=== PATIENT | male | born 1945 | race African-American/Black ===

== ENCOUNTER 2020-06-07 09:21 | Inpatient (IN) | payer OTHER ==
--- NOTE | 2020-06-07 09:28 | PDOC ---
History of Present Illness - General Chief Complaint: Urinary Catheter Problem Stated Complaint: URINARY CATHETER PROBLEM Time Seen by Provider: 06/07/20 09:26 - History of Present Illness Initial Comments: 06/07/20 09:30 74yo M hx iron def anemia,HTN,HLD recent hip replacement presents to the ED with inability to pass urine through his root catheter for 3 days and hgb of 6.9. Pt was last seen at this ED 2 days ago for [facility] repeat Hgb at that time was 7 and pt was d/c without incident. Root was last changed yesterday, and no urine was passed. He denies any fevers, chill, abdominal pain, flank pain, nausea, vomiting, diarrhea. Lasts bowel movement was on Monday. PMHx: as noted above ROS: as noted SHx: Denies Etoh, IVDA, tobacco use Allergies: NKDA ROS: GENERAL/CONSTITUTIONAL: No fever or chills. No weakness. HEAD, EYES, EARS, NOSE AND THROAT: No change in vision. No ear pain or discharge. No sore throat. CARDIOVASCULAR: No chest pain or shortness of breath RESPIRATORY: No cough, wheezing, or hemoptysis. GASTROINTESTINAL: No nausea, vomiting, diarrhea or constipation. GENITOURINARY: No dysuria, frequency, or change in urination. MUSCULOSKELETAL: No joint or muscle swelling or pain. No neck or back pain. SKIN: No rash NEUROLOGIC: No headache, vertigo, loss of consciousness, or change in strength/sensation. ENDOCRINE: No increased thirst. No abnormal weight change HEMATOLOGIC/LYMPHATIC: No anemia, easy bleeding, or history of blood clots. ALLERGIC/IMMUNOLOGIC: No hives or skin allergy. PE: GENERAL: Awake, alert, and fully oriented, in no acute distress HEAD: No signs of trauma, normocephalic, atraumatic EYES: PERRLA, EOMI, sclera anicteric, conjunctiva clear ENT: Auricles normal inspection, hearing grossly normal, nares patent, oropharynx clear without exudates. Moist mucosa NECK: Normal ROM, supple, no lymphadenopathy, JVD, or masses LUNGS: No distress, speaks full sentences, clear to auscultation bilaterally HEART: Regular rate and rhythm, normal S1 and S2, no murmurs, rubs or gallops, peripheral pulses normal and equal bilaterally. ABDOMEN: Soft, nontender, hernia above umbilicus (non-tender). EXTREMITIES : Normal inspection, Normal range of motion, no edema. No clubbing or cyanosis NEUROLOGICAL: Cranial nerves II through XII grossly intact. Normal speech, normal gait, no focal sensorimotor deficits SKIN: Warm, Dry, normal turgor, no rashes or lesions noted MDM DDx including but not limited to: Workup: TX: Scores - HEART score - EKG: normal sinus rhythm, HR bpm, AL ms, QRS ms, QTc ms ED course attempts to irrigate root catheter already in place, unsuccessful new root placed approx 600cc of blood urine obtained. multiple large clots observed after irrigation of bladder with sterile water. -hyperkalemic on first BMP, reported hemolyzed repeat EKG, normal SR, no peaked T waves repeat BMP sent repeat BMP with potassium of 5 CXR: no acute pathology calcium gluconate given Past History - Medical History Allergies/Adverse Reactions: Allergies Allergy/AdvReac Type Severity Reaction Status Date / Time No Known Drug Allergies Allergy Verified 06/07/20 09:23 Home Medications: Ambulatory Orders Albuterol 2.5/Ipratropium 0.5 [Duoneb -] 1 amp NEB BID 06/05/20 Aspirin [ASA -] 81 mg PO BID 06/05/20 Atorvastatin Ca [Lipitor] 80 mg PO HS 06/05/20 Bacitracin - [Bacitracin Topical Ointment -] 1 applic TP DAILY 06/05/20 Diltiazem HCl [Diltiazem 24Hr ER] 120 mg PO DAILY 06/05/20 Ferrous Sulfate [Feosol] 325 mg PO BID 06/05/20 Furosemide [Lasix -] 40 mg PO DAILY 06/05/20 Lactulose [Enulose] 30 ml PO DAILY PRN 06/05/20 Oxycodone HCl/Acetaminophen [Oxycodone-Acetaminophen 10-325] 1 each PO Q4H PRN 06/05/20 Pantoprazole Sodium [Protonix -] 40 mg PO BID 06/05/20 Sennosides [Senokotxtra] 17.2 mg PO BID 06/05/20 Sulfamethoxazole/Trimethoprim [Bactrim Ds -] 1 tab PO BID 06/05/20 Tamsulosin HCl [Flomax] 0.4 mg PO DAILY 06/05/20 COPD: No HTN: Yes Hypercholesterolemia: Yes - Psycho-Social/Smoking History Smoking History: Never smoked ED Treatment Course - LABORATORY CBC & Chemistry Diagram: 06/07/20 10:26 06/07/20 11:40 Discharge - Follow up/Referral Referrals: Colby Jeronimo MD [Primary Care Provider] - - Patient Discharge Instructions - Post Discharge Activity
[2020-06-07 10:40] LABS: BASO % 0.5 % (0-2.0); HEMOGLOBIN 7.5 GM/dL (11.7-16.9); LYMPH % 12.7 % (8-40); MCH 27.2 pg (25.7-33.7); MCHC 32.7 g/dl (32.0-35.9); MEAN CELL VOLUME 83.1 fl (80-96); MEAN PLT VOLUME 7.4 fl (7.5-11.1); NEUT % 79.8 % (42.8-82.8); PLATELET COUNT 352 K/MM3 (134-434); RBC 2.76 M/mm3 (4.00-5.60); RDW 17.6 % (11.9-15.9); WHITE BLOOD COUNT 6.4 K/mm3 (4.0-10.0)
[2020-06-07 10:46] LABS: INR 1.29 (0.83-1.09); PROTHROMBIN TIME (PATIENT) 15.3 SEC (9.7-13.0)
[2020-06-07 10:57] LABS: ALBUMIN 3.4 g/dl (3.4-5.0); BILIRUBIN,TOTAL 0.6 mg/dL (0.2-1); BLOOD UREA NITROGEN 26.3 mg/dL (7-18); CALCIUM 8.5 mg/dL (8.5-10.1); CREATININE 3.1 mg/dL (0.55-1.3); TOT PROT 8.7 g/dl (6.4-8.2)
[2020-06-07 11:08] LABS: POTASSIUM 8.1 mmol/L (3.5-5.1)
[2020-06-07] MEDS ORDERED: CALCIUM GLUCONATE 10% - 1,000 MG/10 ML VIAL IVPUSH ONE (11:09)
[2020-06-07] MEDS ORDERED: SODIUM CHLORIDE 0.9% 500 ML INFUS.BAG IV ONE (11:20)
[2020-06-07] MEDS ORDERED: DEXTROSE 50%-WATER - 25 GM/50 ML VIAL IVPUSH ONE (11:23)
[2020-06-07 11:27] LABS: URINE APPEARANCE TURBID
--- NOTE | 2020-06-07 11:27 | PDOC ---
Documentation entered by Marco Antonio Rodriguez SCRIBE, acting as scribe for Keyanna Bledsoe MD. Keyanna Bledsoe MD: This documentation has been prepared by the scribe, Marco Antonio Rodriguez SCRIBE, under my direction and personally reviewed by me in its entirety. I confirm that the documentation accurately reflects all work, treatment, procedures, and medical decision making performed by me. Attending Attestation - Resident Resident Name: Nick Dykes - ED Attending Attestation I have performed the following: I have examined & evaluated the patient, The case was reviewed & discussed with the resident, I agree w/resident's findings & plan, Exceptions are as noted - HPI HPI: 06/07/20 10:38 The patient is a 74 year old male with a significant past medical history of HTN, HLD, and anemia (baseline hgb around 7) who presents to the emergency department, [facility] from [facility], for evaluation of the inability to pass urine through his root catheter that began three days ago. The patient was fou nd to have a hemoglobin of 6.9 today. The patient presented to the ED two days ago and had a recorded hemoglobin of 5.9 that elevated to 7 prior to discharge. His root was changed yesterday but no urine was passed after this. LBM: 2 days ago The patient denies chest/abdominal/back pain, cough, and shortness of breath. Denies fever, chills, nausea, vomiting, and/or any GI symptoms. Denies any other symptoms. Allergies: NKDA Past surgical history: Left Hip replacement Social history: No reported hx of tobacco use, alcohol use or illicit drug use. PCP: Bladimir Goodwin Ortho: Dr. Jarquin - Physicial Exam PE: 06/07/20 11:18 General: uncomfortable appearing Abdomen: soft, +suprapubic ttp, +palpable bladder, no rebound, no guarding - Medical Decision Making 06/07/20 11:19 74 yo M with urinary retention and report of anemia today, root changed and irrigated with return of blood and urine. Pt. with significant improvement in his discomfort s/p root. Plan: -labs -urine -root replaced and currently draining urine -reassess This clinical encounter is taking place during a federal and state health care e mergency attributable to the novel Emery Virus pandemic. The [employer] of the Department of Health and Human Services has declared, pursuant to the Public Health Service Act 319F-3 (42 U.S.C. 247d-6d), that a covered persons activities related to medical countermeasures against COVID-19 will be immune from liability under Federal and State law. Labs notable for Cr ~3 (baseline ~1.4). Suspect HENOK 2/2 obstructive uropathy. Hgb 7.5 so will hold on transfusion at present time and recheck labs. K 8.1 but slightly hemolyzed. EKG with normal intervals and no peaked t waves so will hold Ca for now. Will give insulin, d50, IVF. Will continue to monitor and recheck labs. Will admit for HENOK. Discharge - Discharge Information Problems reviewed: Yes Clinical Impression/Diagnosis: HENOK (acute kidney injury) Anemia Qualifiers: Anemia type: unspecified type Qualified Code(s): D64.9 - Anemia, unspecified - Follow up/Referral - Patient Discharge Instructions - Post Discharge Activity
[2020-06-07 11:28] LABS: EPI CELLS 1+ /uL (0-25.1); URINE BACTERIA 1+ /uL (0-1359); URINE RBC >100 /uL (0-23.9)
[2020-06-07 11:29] LABS: URINE COLOR RED
[2020-06-07 12:24] LABS: BLOOD UREA NITROGEN 25.7 mg/dL (7-18); CALCIUM 8.8 mg/dL (8.5-10.1); CREATININE 2.8 mg/dL (0.55-1.3)
[2020-06-07 14:50] LABS: BASO % 0.6 % (0-2.0); HEMATOCRIT 18.9 % (35.4-49); LYMPH % 20.2 % (8-40); MCH 27.1 pg (25.7-33.7); MCHC 32.8 g/dl (32.0-35.9); MEAN CELL VOLUME 82.6 fl (80-96); MEAN PLT VOLUME 7.1 fl (7.5-11.1); MONO % 10.9 % (3.8-10.2); NEUT % 68.3 % (42.8-82.8); PLATELET COUNT 266 K/MM3 (134-434); RBC 2.28 M/mm3 (4.00-5.60); RDW 17.3 % (11.9-15.9); WHITE BLOOD COUNT 5.3 K/mm3 (4.0-10.0)
[2020-06-07 14:56] LABS: HEMOGLOBIN 6.2 GM/dL (11.7-16.9)
[2020-06-08] MEDS ORDERED: ACETAMINOPHEN 325 MG TABLET (FP) PO ONE (04:15)
[2020-06-08] MEDS ORDERED: oxyCODONE HCL 5 MG TABLET PO ONE (04:15)
[2020-06-08 12:19] LABS: HEMATOCRIT 21.6 % (35.4-49); HEMOGLOBIN 7.3 GM/dL (11.7-16.9); MCH 28.8 pg (25.7-33.7); MCHC 33.9 g/dl (32.0-35.9); MEAN CELL VOLUME 84.9 fl (80-96); MEAN PLT VOLUME 6.9 fl (7.5-11.1); PLATELET COUNT 209 K/MM3 (134-434); RBC 2.55 M/mm3 (4.00-5.60); RDW 17.8 % (11.9-15.9); WHITE BLOOD COUNT 5.1 K/mm3 (4.0-10.0)
[2020-06-08 12:25] LABS: ALBUMIN 3.2 g/dl (3.4-5.0); BILIRUBIN,TOTAL 0.5 mg/dL (0.2-1); BLOOD UREA NITROGEN 22.7 mg/dL (7-18); CALCIUM 8.2 mg/dL (8.5-10.1); CREATININE 1.6 mg/dL (0.55-1.3); POTASSIUM 4.6 mmol/L (3.5-5.1)
[2020-06-08 12:27] LABS: TOT PROT 6.4 g/dl (6.4-8.2)
--- NOTE | 2020-06-08 13:03 | HP ---
Admitting History and Physical - Admission History of Present Illness: The patient is a 74 year old male with a significant past medical history of HTN, HLD, and anemia (baseline hgb around 7) who presents to the emergency department, [facility] from [facility], for evaluation of the inability to pass urine through his root catheter that began three days ago. The patient was found to have a hemoglobin of 6.9 today. The patient presented to the ED two days ago and had a recorded hemoglobin of 5.9 that elevated to 7 prior to discharge. His root was changed yesterday but no urine was passed after this. LBM: 2 days ago - Past Medical History Cardiovascular: Yes: HTN, Hyperlipdemia Gastrointestinal: Yes: GERD Heme/Onc: Yes: Anemia Musculoskeletal: Yes: Osteoarthritis - Past Surgical History Past Surgical History: Yes: Joint Replacement - Smoking History Smoking history: Never smoked Have you smoked in the past 12 months: No Home Medications - Allergies Allergies/Adverse Reactions: Allergies Allergy/AdvReac Type Severity Reaction Status Date / Time No Known Drug Allergies Allergy Verified 06/07/20 09:23 - Home Medications Home Medications: Ambulatory Orders Albuterol 2.5/Ipratropium 0.5 [Duoneb -] 1 amp NEB BID 06/05/20 Aspirin [ASA -] 81 mg PO BID 06/05/20 Atorvastatin Ca [Lipitor] 80 mg PO HS 06/05/20 Bacitracin - [Bacitracin Topical Ointment -] 1 applic TP DAILY 06/05/20 Diltiazem HCl [Diltiazem 24Hr ER] 120 mg PO DAILY 06/05/20 Ferrous Sulfate [Feosol] 325 mg PO BID 06/05/20 Furosemide [Lasix -] 40 mg PO DAILY 06/05/20 Lactulose [Enulose] 30 ml PO DAILY PRN 06/05/20 Oxycodone HCl/Acetaminophen [Oxycodone-Acetaminophen 10-325] 1 each PO Q4H PRN 06/05/20 Pantoprazole Sodium [Protonix -] 40 mg PO BID 06/05/20 Sennosides [Senokotxtra] 17.2 mg PO BID 06/05/20 Sulfamethoxazole/Trimethoprim [Bactrim Ds -] 1 tab PO BID 06/05/20 Tamsulosin HCl [Flomax] 0.4 mg PO DAILY 06/05/20 Physical Examination Vital Signs: Vital Signs Temperature 98.7 F 06/08/20 06:00 Pulse Rate 88 06/08/20 10:00 Respiratory Rate 18 06/08/20 10:00 Blood Pressure 111/66 06/08/20 10:00 O2 Sat by Pulse Oximetry (%) 98 06/08/20 10:00 Cardiovascular: Yes: Regular Rate and Rhythm Respiratory: Yes: Regular, CTA Bilaterally Gastrointestinal: Yes: Normal Bowel Sounds, Soft. No: Tenderness Labs: CBC, BMP 06/08/20 11:50 06/08/20 11:50 Problem List - Problems (1) Anemia Assessment/Plan: maybe due to hematuria follow trends urology and gi consults Code(s): D64.9 - ANEMIA, UNSPECIFIED Qualifiers: Anemia type: unspecified type Qualified Code(s): D64.9 - Anemia, unspecified (2) HTN (hypertension) Assessment/Plan: monitor Vital Signs Period Temp Pulse Resp BP Sys/Vo Pulse Ox Last 24 Hr 98.2 F-98.7 F 76-97 18-18 94-135/46-68 97-100 Code(s): I10 - ESSENTIAL (PRIMARY) HYPERTENSION (3) HLD (hyperlipidemia) Assessment/Plan: on statin Code(s): E78.5 - HYPERLIPIDEMIA, UNSPECIFIED (4) HENOK (acute kidney injury) Assessment/Plan: maybe obstructive monitor trends follow labs ivf renal consult Code(s): N17.9 - ACUTE KIDNEY FAILURE, UNSPECIFIED (5) Retention, urine Assessment/Plan: root flomax urology consult Code(s): R33.9 - RETENTION OF URINE, UNSPECIFIED
[2020-06-08] MEDS ORDERED: LACTULOSE 20 GM/30 ML UDC (FOR ORAL USE ONLY) PO PRN (13:06)
[2020-06-08] MEDS ORDERED: PATIENT'S OWN MEDICATION (NON-FORMULARY) (Oxycodone Hcl/Acetaminophen [Oxycodone-Acetamino PO PRN (13:06)
[2020-06-08] MEDS ORDERED: ACETAMINOPHEN 325 MG TABLET (FP) PO PRN (13:25)
[2020-06-08] MEDS: PANTOPRAZOLE 40 MG TABLET PO SCH ×2 (15:00→22:08)
[2020-06-08] MEDS: FERROUS SO4 325 MG TABLET (FP) PO SCH (16:59)
[2020-06-08] MEDS: ALBUTEROL SO4 2.5/IPRATROPIUM 0.5 INH SOL 3 ML VIAL.NEB. NEB SCH (20:07)
[2020-06-08] MEDS ORDERED: PANTOPRAZOLE 40 MG TABLET PO SCH (22:00)
[2020-06-08] MEDS: ATORVASTATIN CA 80 MG TABLET (FP) PO SCH (22:08)
[2020-06-08] MEDS: SENNOSIDES 8.6MG TABLET (FP) PO SCH (22:09)
[2020-06-09] MEDS: ALBUTEROL SO4 2.5/IPRATROPIUM 0.5 INH SOL 3 ML VIAL.NEB. NEB SCH ×2 (08:01→20:50)
--- NOTE | 2020-06-09 08:04 | CON.GU ---
Consult Consult Specialty:: urology Referred by:: Clayton - History of Present Illness Chief Complaint: gross hematuria/acute renal injury/bph managed with root History of Present Illness: The patient is a 74 year old male with a significant past medical history of HTN, HLD, and anemia (baseline hgb around 7) who presents to the emergency department from [facility] for evaluation of the inability to pass urine through his root catheter that began three days ago. The patient was found to have a hemoglobin of 6.9 today. The patient presented to the ED two days ago and had a recorded hemoglobin of 5.9 that elevated to 7 prior to discharge. His fol ey was changed yesterday but no urine was passed after this. The patient is currently comfortable with red colored urine passing by root without discomfort. The patient denies chest/abdominal/back pain, cough, and shortness of breath. Denies fever, chills, nausea, vomiting, and/or any GI symptoms. Denies any other symptoms. - Past Medical History Cardio/Vascular: Yes: HTN, Hyperlipdemia Gastrointestinal: Yes: GERD Musculoskeletal: Yes: Osteoarthritis - Past Surgical History Past Surgical History: Yes: Joint Replacement - Smoking History Smoking history: Never smoked Have you smoked in the past 12 months: No Home Medications - Allergies Allergies/Adverse Reactions: Allergies Allergy/AdvReac Type Severity Reaction Status Date / Time No Known Drug Allergies Allergy Verified 06/07/20 09:23 - Home Medications Home Medications: Ambulatory Orders Albuterol 2.5/Ipratropium 0.5 [Duoneb -] 1 amp NEB BID 06/05/20 Aspirin [ASA -] 81 mg PO BID 06/05/20 Atorvastatin Ca [Lipitor] 80 mg PO HS 06/05/20 Bacitracin - [Bacitracin Topical Ointment -] 1 applic TP DAILY 06/05/20 Diltiazem HCl [Diltiazem 24Hr ER] 120 mg PO DAILY 06/05/20 Ferrous Sulfate [Feosol] 325 mg PO BID 06/05/20 Furosemide [Lasix -] 40 mg PO DAILY 06/05/20 Lactulose [Enulose] 30 ml PO DAILY PRN 06/05/20 Oxycodone HCl/Acetaminophen [Oxycodone-Acetaminophen 10-325] 1 each PO Q4H PRN 06/05/20 Pantoprazole Sodium [Protonix -] 40 mg PO BID 06/05/20 Sennosides [Senokotxtra] 17.2 mg PO BID 06/05/20 Sulfamethoxazole/Trimethoprim [Bactrim Ds -] 1 tab PO BID 06/05/20 Tamsulosin HCl [Flomax] 0.4 mg PO DAILY 06/05/20 Physical Exam- Vital Signs: Vital Signs Temperature 98.4 F 06/09/20 06:00 Pulse Rate 74 06/09/20 06:00 Respiratory Rate 18 06/09/20 06:00 Blood Pressure 101/65 06/09/20 06:00 O2 Sat by Pulse Oximetry (%) 99 06/09/20 06:00 Constitutional: Yes: Well Nourished, No Distress, Calm Eyes: Yes: WNL, Conjunctiva Clear, EOM Intact HENT: Yes: WNL, Atraumatic, Normocephalic Neck: Yes: Supple, Trachea Midline Cardiovascular: Yes: Regular Rate and Rhythm Respiratory: Yes: WNL Gastrointestinal: Yes: WNL, Normal Bowel Sounds, Soft Renal/: Yes: WNL, Urethral Discharge Pelvis: Yes: WNL Scrotum: Yes: WNL Penis: Yes: WNL (root draining blood colored urine without clots) Prostate Exam: Yes: Asymmetrical, Swollen Integumentary: Yes: WNL Psychiatric: Yes: Alert, Oriented Labs: CBC, BMP 06/08/20 11:50 06/08/20 11:50 Assessment/Plan impression hemorrhagic cystitis uti HENOK plan follow hct continue bactrim continue root and flomax renal and bladder sono ordered urine cultures sent
[2020-06-09] MEDS: TAMSULOSIN HCL 0.4 MG CAP PO SCH (08:24)
[2020-06-09] MEDS: FERROUS SO4 325 MG TABLET (FP) PO SCH ×2 (08:24→17:11)
--- NOTE | 2020-06-09 09:06 | PN ---
Progress Note, Physician - Current Medication List Current Medications: Active Medications Acetaminophen (Tylenol -) 325 mg PO Q4H PRN PRN Reason: PAIN LEVEL 6-10 Albuterol/Ipratropium (Duoneb -) 1 amp NEB RBID [facility] Last Admin: 06/09/20 08:01 Dose: Not Given Documented by: Atorvastatin Calcium (Lipitor -) 80 mg PO HS [facility] Last Admin: 06/08/20 22:08 Dose: 80 mg Documented by: Diltiazem HCl (Cardizem Cd -) 120 mg PO DAILY [facility] Ferrous Sulfate (Feosol -) 325 mg PO BIDWM [facility] Last Admin: 06/09/20 08:24 Dose: 325 mg Documented by: Lactulose (Cephulac (Oral Use)) 20 gm PO DAILY PRN PRN Reason: CONSTIPATION Last Admin: 06/09/20 06:54 Dose: 20 gm Documented by: Oxycodone HCl (Roxicodone -) 10 mg PO Q4H PRN PRN Reason: PAIN LEVEL 6-10 Pantoprazole Sodium (Protonix -) 40 mg PO BID [facility] Last Admin: 06/08/20 22:08 Dose: 40 mg Documented by: Senna (Senna -) 2 tab PO BID [facility] Last Admin: 06/08/20 22:09 Dose: 2 tab Documented by: Tamsulosin HCl (Flomax -) 0.4 mg PO DAILY@0830 [facility] Last Admin: 06/09/20 08:24 Dose: 0.4 mg Documented by: - Objective Vital Signs: Vital Signs Temperature 98.4 F 06/09/20 06:00 Pulse Rate 74 06/09/20 06:00 Respiratory Rate 18 06/09/20 06:00 Blood Pressure 101/65 06/09/20 06:00 O2 Sat by Pulse Oximetry (%) 99 06/09/20 06:00 Cardiovascular: Yes: Regular Rate and Rhythm Respiratory: Yes: Regular, CTA Bilaterally Gastrointestinal: Yes: Normal Bowel Sounds, Soft. No: Tenderness Genitourinary: Yes: Root Present, Hematuria Labs: CBC, BMP 06/08/20 11:50 06/08/20 11:50 INR, PTT INR 1.29 (0.83-1.09) H 06/07/20 10:26 Problem List - Problems (1) Anemia Assessment/Plan: maybe due to hematuria follow trends urology and gi consults Code(s): D64.9 - ANEMIA, UNSPECIFIED Qualifiers: Anemia type: unspecified type Qualified Code(s): D64.9 - Anemia, unspecified (2) HTN (hypertension) Assessment/Plan: monitor Vital Signs Period Temp Pulse Resp BP Sys/Vo Pulse Ox Last 24 Hr 98.2 F-98.7 F 76-97 18-18 94-135/46-68 97-100 Code(s): I10 - ESSENTIAL (PRIMARY) HYPERTENSION (3) HLD (hyperlipidemia) Assessment/Plan: on statin Code(s): E78.5 - HYPERLIPIDEMIA, UNSPECIFIED (4) HENOK (acute kidney injury) Assessment/Plan: maybe obstructive monitor trends follow labs ivf renal consult Code(s): N17.9 - ACUTE KIDNEY FAILURE, UNSPECIFIED (5) Retention, urine Assessment/Plan: root flomax urology consult Code(s): R33.9 - RETENTION OF URINE, UNSPECIFIED (6) Cystitis Assessment/Plan: PER UROLOGY Code(s): N30.90 - CYSTITIS, UNSPECIFIED WITHOUT HEMATURIA
[2020-06-09] MEDS: PANTOPRAZOLE 40 MG TABLET PO SCH ×2 (09:39→21:58)
[2020-06-09] MEDS: SENNOSIDES 8.6MG TABLET (FP) PO SCH ×2 (09:39→21:57)
[2020-06-09] MEDS: oxyCODONE HCL 5 MG TABLET PO PRN ×2 (09:40→21:56)
[2020-06-09 10:55] LABS: BASO % 1.4 % (0-2.0); EOS % 2.2 % (0-4.5); HEMATOCRIT 24.8 % (35.4-49); HEMOGLOBIN 8.3 GM/dL (11.7-16.9); LYMPH % 19.3 % (8-40); MCH 28.5 pg (25.7-33.7); MCHC 33.6 g/dl (32.0-35.9); MEAN CELL VOLUME 84.6 fl (80-96); MONO % 13.7 % (3.8-10.2); NEUT % 63.4 % (42.8-82.8); PLATELET COUNT 248 K/MM3 (134-434); RBC 2.93 M/mm3 (4.00-5.60); RDW 17.5 % (11.9-15.9); WHITE BLOOD COUNT 6.3 K/mm3 (4.0-10.0)
[2020-06-09 11:16] LABS: BILIRUBIN,TOTAL 0.6 mg/dL (0.2-1); CALCIUM 8.4 mg/dL (8.5-10.1); CREATININE 1.2 mg/dL (0.55-1.3); POTASSIUM 4.2 mmol/L (3.5-5.1); TOT PROT 6.8 g/dl (6.4-8.2)
--- NOTE | 2020-06-09 18:44 | CON.NEP ---
Consult Consult Specialty:: Nephrology Referred by:: Dr. Arnold Reason for Consultation:: Acute kidney injury/urinary retention - History of Present Illness Chief Complaint: Urinary retention History of Present Illness: This is a 74 year old male with history of hypertension, hyperlipidemia, anemia, recent hip replacement, urinary retention with chronic indwelling root who presented from rehab with root obstruction and no urine output and found to have HENOK and acute on chronic anemia. Seen and examined at t he bedside. Awake and alert. Root was changed and pt is voiding but urine has stacie blood in it. Denies any flank pain or abdominal pain. No fever, chills, N/V/D. No leg swelling. No sob or abdominal pain. - History Source History Provided By: Patient Limitations to Obtaining History: No Limitations - Past Medical History Cardio/Vascular: Yes: HTN, Hyperlipdemia Gastrointestinal: Yes: GERD Musculoskeletal: Yes: Osteoarthritis - Past Surgical History Past Surgical History: Yes: Joint Replacement - Smoking History Smoking history: Never smoked Have you smoked in the past 12 months: No Home Medications - Allergies Allergies/Adverse Reactions: Allergies Allergy/AdvReac Type Severity Reaction Status Date / Time No Known Drug Allergies Allergy Verified 06/07/20 09:23 - Home Medications Home Medications: Ambulatory Orders Albuterol 2.5/Ipratropium 0.5 [Duoneb -] 1 amp NEB BID 06/05/20 Aspirin [ASA -] 81 mg PO BID 06/05/20 Atorvastatin Ca [Lipitor] 80 mg PO HS 06/05/20 Bacitracin - [Bacitracin Topical Ointment -] 1 applic TP DAILY 06/05/20 Diltiazem HCl [Diltiazem 24Hr ER] 120 mg PO DAILY 06/05/20 Ferrous Sulfate [Feosol] 325 mg PO BID 06/05/20 Furosemide [Lasix -] 40 mg PO DAILY 06/05/20 Lactulose [Enulose] 30 ml PO DAILY PRN 06/05/20 Oxycodone HCl/Acetaminophen [Oxycodone-Acetaminophen 10-325] 1 each PO Q4H PRN 06/05/20 Pantoprazole Sodium [Protonix -] 40 mg PO BID 06/05/20 Sennosides [Senokotxtra] 17.2 mg PO BID 06/05/20 Sulfamethoxazole/Trimethoprim [Bactrim Ds -] 1 tab PO BID 06/05/20 Tamsulosin HCl [Flomax] 0.4 mg PO DAILY 06/05/20 Review of Systems - Review of Systems Constitutional: reports: No Symptoms Eyes: reports: No Symptoms HENT: reports: No Symptoms Neck: reports: No Symptoms Cardiovascular: reports: No Symptoms Respiratory: reports: No Symptoms Gastrointestinal: reports: No Symptoms Genitourinary: reports: No Symptoms Musculoskeletal: reports: No Symptoms Integumentary: reports: No Symptoms Neurological: reports: No Symptoms Endocrine: reports: No Symptoms Nephrology Consult - Height Height: 5 ft 7 in - Weight Weight: 76.43 kg - BMI Body Mass Index (BMI): 26.4 - Lab Results CBC,BMP: CBC, BMP 06/09/20 10:08 06/09/20 10:08 Anion Gap: Anion Gap Anion Gap 5 MMOL/L (8-16) L 06/09/20 10:08 - Imaging Chest X-ray: Report Reviewed - Physical Examination Vital Signs: Vital Signs Temperature 98.7 F 06/09/20 14:00 Pulse Rate 81 06/09/20 14:00 Respiratory Rate 06/09/20 14:00 Blood Pressure 113/63 06/09/20 14:00 O2 Sat by Pulse Oximetry (%) 96 06/09/20 14:00 Constitutional: Yes: No Distress, Calm Eyes: Yes: Conjunctiva Clear HENT: Yes: Atraumatic Neck: Yes: Supple Cardiovascular: Yes: Regular Rate and Rhythm Respiratory: Yes: Regular, Diminished Gastrointestinal: Yes: Soft Renal/: Yes: Root Present, Hematuria. No: Bladder Distention, CVA Tenderness - Left, CVA Tenderness - Right Extremities: No: Cold, Cool, Cyanosis Edema: No Neurological: Yes: Alert, Oriented Assessment/Plan 74 year old male with history of hypertension, hyperlipidemia, anemia, recent hip replacement, urinary retention with chronic indwelling root who presented from rehab with root obstruction and no urine output and found to have HENOK and acute on chronic anemia. 1. Acute kidney injury due to bladder outlet obstruction 2. Hemorrhagic cystitis 3. Acute on chronic anemia 4. Chronic urinary retention requiring Root 5. Hypertension 6. Hyperlipidemia Renal function improved s/p catheter change. Start 1/2 NS at 84cc per hour to promote urine output Continue Root Hemorrhagic cystitis management per urology, ? need for CBI Continue empiric antibiotics Trend H/H, transfuse as needed consider Hematology evaluation if not done previously Thank you Cheng Bell DO
[2020-06-09] MEDS ORDERED: SODIUM CHLORIDE 0.45% 1,000 ML IV SCH (18:45)
[2020-06-09] MEDS: ATORVASTATIN CA 80 MG TABLET (FP) PO SCH (21:57)
[2020-06-09] MEDS: SODIUM CHLORIDE 0.45% 1,000 ML IV SCH (23:44)
[2020-06-10 02:27] LABS: BLOOD UREA NITROGEN 18.2 mg/dL (7-18); CALCIUM 8.6 mg/dL (8.5-10.1); CREATININE 1.3 mg/dL (0.55-1.3); POTASSIUM 4.3 mmol/L (3.5-5.1)
[2020-06-10] MEDS: oxyCODONE HCL 5 MG TABLET PO PRN ×2 (02:57→22:05)
--- NOTE | 2020-06-10 02:59 | PN ---
Progress Note (short form) - Note Progress Note: Noted earlier in evening to have no urine output from [facility], some blood seen in collection bag. Evaluated by [employer] Jose M, Serna changed. She attempted to consult urology, multiple calls placed wtih no response Patient now with BRB in tube Attempted to contact urology again via answering service, states Dr. Gustafson is home economist consumer service although our schedule shows Dr. Tellez. Multiple calls attempted by answering service wtih no callback. Fluids decreased to 50cc/h. Rpt labs noted, no significant change in renal function.
[2020-06-10] MEDS ORDERED: MORPHINE SULFATE 2 MG/ML VIAL IVPUSH ONE (03:50)
[2020-06-10] MEDS ORDERED: LIDOCAINE HCL 2% JELLY 10 ML CARTRIDGE UR ONE (04:00)
[2020-06-10] MEDS: ALBUTEROL SO4 2.5/IPRATROPIUM 0.5 INH SOL 3 ML VIAL.NEB. NEB SCH ×2 (07:50→20:17)
--- NOTE | 2020-06-10 08:02 | CON.GI ---
Consult Consult Specialty:: GI Referred by:: Clayton villar - History of Present Illness History of Present Illness: 74 y/o male was asked to be seen because of anemia. He was noted to have severe hematuria passing out clots. He denies abdominal pain, nausea , vomiting, rectal bleeding and melena - Past Medical History Cardio/Vascular: Yes: HTN, Hyperlipdemia Gastrointestinal: Yes: GERD Musculoskeletal: Yes: Osteoarthritis - Past Surgical History Past Surgical History: Yes: Joint Replacement - Smoking History Smoking history: Never smoked Have you smoked in the past 12 months: No Home Medications - Allergies Allergies/Adverse Reactions: Allergies Allergy/AdvReac Type Severity Reaction Status Date / Time No Known Drug Allergies Allergy Verified 06/07/20 09:23 - Home Medications Home Medications: Ambulatory Orders Albuterol 2.5/Ipratropium 0.5 [Duoneb -] 1 amp NEB BID 06/05/20 Aspirin [ASA -] 81 mg PO BID 06/05/20 Atorvastatin Ca [Lipitor] 80 mg PO HS 06/05/20 Bacitracin - [Bacitracin Topical Ointment -] 1 applic TP DAILY 06/05/20 Diltiazem HCl [Diltiazem 24Hr ER] 120 mg PO DAILY 06/05/20 Ferrous Sulfate [Feosol] 325 mg PO BID 06/05/20 Furosemide [Lasix -] 40 mg PO DAILY 06/05/20 Lactulose [Enulose] 30 ml PO DAILY PRN 06/05/20 Oxycodone HCl/Acetaminophen [Oxycodone-Acetaminophen 10-325] 1 each PO Q4H PRN 06/05/20 Pantoprazole Sodium [Protonix -] 40 mg PO BID 06/05/20 Sennosides [Senokotxtra] 17.2 mg PO BID 06/05/20 Sulfamethoxazole/Trimethoprim [Bactrim Ds -] 1 tab PO BID 06/05/20 Tamsulosin HCl [Flomax] 0.4 mg PO DAILY 06/05/20 Physical Exam-GI Vital Signs: Vital Signs Temperature 98.6 F 06/10/20 05:46 Pulse Rate 84 06/10/20 05:46 Respiratory Rate 20 06/10/20 05:46 Blood Pressure 124/67 06/10/20 05:46 O2 Sat by Pulse Oximetry (%) 98 06/10/20 05:46 Constitutional: Yes: Well Nourished Eyes: Yes: Conjunctiva Clear HENT: Yes: Atraumatic, Tonsillar Exudate Cardiovascular: Yes: Regular Rate and Rhythm Respiratory: Yes: CTA Bilaterally ...Palpate: Yes: Soft. No: Firm/Rigid, Guarding, Hepatomegaly, Mass, Pulsatile Mass, Splenomegaly, Tenderness Labs: CBC, BMP 06/09/20 10:08 06/10/20 01:52 INR, PTT INR 1.29 (0.83-1.09) H 06/07/20 10:26 CBCD WBC 6.3 K/mm3 (4.0-10.0) 06/09/20 10:08 RBC 2.93 M/mm3 (4.00-5.60) L 06/09/20 10:08 Hgb 8.3 GM/dL (11.7-16.9) L 06/09/20 10:08 Hct 24.8 % (35.4-49) L 06/09/20 10:08 MCV 84.6 fl (80-96) 06/09/20 10:08 MCHC 33.6 g/dl (32.0-35.9) 06/09/20 10:08 RDW 17.5 % (11.9-15.9) H 06/09/20 10:08 Plt Count 248 K/MM3 (134-434) 06/09/20 10:08 MPV 7.0 fl (7.5-11.1) L 06/09/20 10:08 CMP Sodium 138 mmol/L (136-145) 06/10/20 01:52 Potassium 4.3 mmol/L (3.5-5.1) 06/10/20 01:52 Chloride 106 mmol/L (98-107) 06/10/20 01:52 Carbon Dioxide 25 mmol/L (21-32) 06/10/20 01:52 Anion Gap 7 MMOL/L (8-16) L 06/10/20 01:52 BUN 18.2 mg/dL (7-18) H 06/10/20 01:52 Creatinine 1.3 mg/dL (0.55-1.3) 06/10/20 01:52 Calcium 8.6 mg/dL (8.5-10.1) 06/10/20 01:52 Total Bilirubin 0.6 mg/dL (0.2-1) 06/09/20 10:08 AST 30 U/L (15-37) 06/09/20 10:08 ALT 25 U/L (13-61) 06/09/20 10:08 Alkaline Phosphatase 46 U/L (45-117) 06/09/20 10:08 Total Protein 6.8 g/dl (6.4-8.2) 06/09/20 10:08 Albumin 3.0 g/dl (3.4-5.0) L 06/09/20 10:08 Problem List - Problems (1) Anemia Assessment/Plan: most likely secondary to hematuria R> gu w/u in progress GI w/u even as an outpatient Code(s): D64.9 - ANEMIA, UNSPECIFIED Qualifiers: Anemia type: unspecified type Qualified Code(s): D64.9 - Anemia, unspecified
[2020-06-10] MEDS: TAMSULOSIN HCL 0.4 MG CAP PO SCH (08:14)
[2020-06-10] MEDS: FERROUS SO4 325 MG TABLET (FP) PO SCH ×2 (08:14→17:16)
[2020-06-10 08:27] LABS: HEMATOCRIT 24.1 % (35.4-49); MCH 28.5 pg (25.7-33.7); MEAN CELL VOLUME 86.4 fl (80-96); MEAN PLT VOLUME 7.2 fl (7.5-11.1); PLATELET COUNT 223 K/MM3 (134-434); RBC 2.79 M/mm3 (4.00-5.60); RDW 17.3 % (11.9-15.9)
[2020-06-10 08:39] LABS: BLOOD UREA NITROGEN 19.3 mg/dL (7-18); CALCIUM 8.4 mg/dL (8.5-10.1); CREATININE 1.4 mg/dL (0.55-1.3); MAGNESIUM 2.3 mg/dL (1.8-2.4); PHOSPHOROUS 3.3 mg/dL (2.5-4.9); POTASSIUM 4.8 mmol/L (3.5-5.1)
--- NOTE | 2020-06-10 08:44 | CONSULT ---
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 The patient had a 14 fr root which was removed though the patient has been on root catheter drainage. The patient denies nausea, vomiting, fever, or chilles PE vss; afeb abd-soft, nontender/palpable bladder procedure note 20 aust[place] root placed and catheter is irrigated imp bph acute renal injury retention gross hematuria plan maintain root start cipro follow hct await renal/bladder sono follow creatinine
--- NOTE | 2020-06-10 08:48 | PN ---
Progress Note, Physician - Current Medication List Current Medications: Active Medications Acetaminophen (Tylenol -) 325 mg PO Q4H PRN PRN Reason: PAIN LEVEL 6-10 Last Admin: 06/09/20 09:41 Dose: 325 mg Documented by: Albuterol/Ipratropium (Duoneb -) 1 amp NEB RBID [facility] Last Admin: 06/10/20 07:50 Dose: Not Given Documented by: Atorvastatin Calcium (Lipitor -) 80 mg PO HS [facility] Last Admin: 06/09/20 21:57 Dose: 80 mg Documented by: Ciprofloxacin (Cipro (Restricted To Id)) 500 mg PO BID [facility] Diltiazem HCl (Cardizem Cd -) 120 mg PO DAILY [facility] Last Admin: 06/09/20 09:39 Dose: 120 mg Documented by: Ferrous Sulfate (Feosol -) 325 mg PO BIDWM [facility] Last Admin: 06/10/20 08:14 Dose: 325 mg Documented by: Sodium Chloride (1/2 Normal Saline) 1,000 mls @ 100 mls/hr IV ASDIR [facility] Last Admin: 06/09/20 23:44 Dose: 100 mls/hr Documented by: Lactulose (Cephulac (Oral Use)) 20 gm PO DAILY PRN PRN Reason: CONSTIPATION Last Admin: 06/09/20 06:54 Dose: 20 gm Documented by: Oxycodone HCl (Roxicodone -) 10 mg PO Q4H PRN PRN Reason: PAIN LEVEL 6-10 Last Admin: 06/10/20 02:57 Dose: 10 mg Documented by: Pantoprazole Sodium (Protonix -) 40 mg PO BID [facility] Last Admin: 06/09/20 21:58 Dose: 40 mg Documented by: Senna (Senna -) 2 tab PO BID [facility] Last Admin: 06/09/20 21:57 Dose: 2 tab Documented by: Tamsulosin HCl (Flomax -) 0.4 mg PO DAILY@0830 [facility] Last Admin: 06/10/20 08:14 Dose: 0.4 mg Documented by: - Objective Vital Signs: Vital Signs Temperature 98.6 F 06/10/20 05:46 Pulse Rate 84 06/10/20 05:46 Respiratory Rate 20 06/10/20 05:46 Blood Pressure 124/67 06/10/20 05:46 O2 Sat by Pulse Oximetry (%) 98 06/10/20 05:46 Labs: CBC, BMP 06/10/20 07:35 06/10/20 07:35 INR, PTT INR 1.29 (0.83-1.09) H 06/07/20 10:26 Problem List - Problems (1) Anemia Assessment/Plan: maybe due to hematuria follow trends urology and gi consults Code(s): D64.9 - ANEMIA, UNSPECIFIED Qualifiers: Anemia type: unspecified type Qualified Code(s): D64.9 - Anemia, unspecified (2) HTN (hypertension) Assessment/Plan: monitor Vital Signs Period Temp Pulse Resp BP Sys/Vo Pulse Ox Last 24 Hr 98.2 F-98.7 F 76-97 18-18 94-135/46-68 97-100 Code(s): I10 - ESSENTIAL (PRIMARY) HYPERTENSION (3) HLD (hyperlipidemia) Assessment/Plan: on statin Code(s): E78.5 - HYPERLIPIDEMIA, UNSPECIFIED (4) HENOK (acute kidney injury) Assessment/Plan: maybe obstructive monitor trends follow labs ivf renal consult Abnormal Lab Results 06/10/20 06/10/20 06/10/20 01:52 07:35 07:35 RBC 2.79 L Hgb 8.0 L Hct 24.1 L RDW 17.3 H MPV 7.2 L Anion Gap 7 L 6 L BUN 18.2 H 19.3 H Creatinine 1.4 H Random Glucose 131 H 108 H Calcium 8.4 L Code(s): N17.9 - ACUTE KIDNEY FAILURE, UNSPECIFIED (5) Retention, urine Assessment/Plan: root flomax urology consult Code(s): R33.9 - RETENTION OF URINE, UNSPECIFIED (6) Cystitis Assessment/Plan: PER UROLOGY Code(s): N30.90 - CYSTITIS, UNSPECIFIED WITHOUT HEMATURIA
[2020-06-10] MEDS ORDERED: PT OWN MED DRAWER 7, Y5N ONE (09:36)
[2020-06-10] MEDS: SENNOSIDES 8.6MG TABLET (FP) PO SCH ×2 (09:38→22:05)
[2020-06-10] MEDS: PANTOPRAZOLE 40 MG TABLET PO SCH ×2 (09:38→22:05)
--- NOTE | 2020-06-10 13:17 | PN ---
Progress Note, Physician History of Present Illness: Seen and examined at the bedside noted to have transient obstruction yesterday, root exchanged by urology he offers no acute complaints denies any pain, sob, N/V/D making bloody urine. - Current Medication List Current Medications: Active Medications Acetaminophen (Tylenol -) 325 mg PO Q4H PRN PRN Reason: PAIN LEVEL 6-10 Last Admin: 06/09/20 09:41 Dose: 325 mg Documented by: Albuterol/Ipratropium (Duoneb -) 1 amp NEB RBID [facility] Last Admin: 06/10/20 07:50 Dose: Not Given Documented by: Atorvastatin Calcium (Lipitor -) 80 mg PO HS [facility] Last Admin: 06/09/20 21:57 Dose: 80 mg Documented by: Diltiazem HCl (Cardizem Cd -) 120 mg PO DAILY [facility] Last Admin: 06/10/20 09:38 Dose: 120 mg Documented by: Ferrous Sulfate (Feosol -) 325 mg PO BIDWM [facility] Last Admin: 06/10/20 08:14 Dose: 325 mg Documented by: Sodium Chloride (1/2 Normal Saline) 1,000 mls @ 100 mls/hr IV ASDIR [facility] Last Admin: 06/09/20 23:44 Dose: 100 mls/hr Documented by: Lactulose (Cephulac (Oral Use)) 20 gm PO DAILY PRN PRN Reason: CONSTIPATION Last Admin: 06/09/20 06:54 Dose: 20 gm Documented by: Levofloxacin (Levaquin -) 500 mg PO DAILY@0600 [facility] Last Admin: 06/10/20 09:38 Dose: 500 mg Documented by: Oxycodone HCl (Roxicodone -) 10 mg PO Q4H PRN PRN Reason: PAIN LEVEL 6-10 Last Admin: 06/10/20 02:57 Dose: 10 mg Documented by: Pantoprazole Sodium (Protonix -) 40 mg PO BID [facility] Last Admin: 06/10/20 09:38 Dose: 40 mg Documented by: Senna (Senna -) 2 tab PO BID [facility] Last Admin: 06/10/20 09:38 Dose: 2 tab Documented by: Tamsulosin HCl (Flomax -) 0.4 mg PO DAILY@0830 [facility] Last Admin: 06/10/20 08:14 Dose: 0.4 mg Documented by: - Objective Vital Signs: Vital Signs Temperature 98.0 F 06/10/20 09:46 Pulse Rate 97 H 06/10/20 09:46 Respiratory Rate 18 06/10/20 09:46 Blood Pressure 134/75 06/10/20 09:46 O2 Sat by Pulse Oximetry (%) 96 06/10/20 09:46 Constitutional: Yes: No Distress, Calm HENT: Yes: Atraumatic Neck: Yes: Supple Cardiovascular: Yes: Regular Rate and Rhythm Respiratory: Yes: Regular, CTA Bilaterally Gastrointestinal: Yes: Soft. No: Tenderness Genitourinary: Yes: Root Present (with dark bloody urine) Extremities: No: Cold, Cool, Cyanosis Edema: No Neurological: Yes: Alert Labs: CBC, BMP 06/10/20 07:35 06/10/20 07:35 INR, PTT INR 1.29 (0.83-1.09) H 06/07/20 10:26 Assessment/Plan 74 year old male with history of hypertension, hyperlipidemia, anemia, recent hip replacement, urinary retention with chronic indwelling root who presented from rehab with root obstruction and no urine output and found to have HENOK and acute on chronic anemia. 1. Acute kidney injury due to bladder outlet obstruction 2. Hemorrhagic cystitis 3. Acute on chronic anemia 4. Chronic urinary retention requiring Root 5. Hypertension 6. Hyperlipidemia Renal function overall improved, slight rise of Cr to 1.4 may be due to transient obstruction Continue 1/2 NS at 84cc per hour to promote urine output Continue Root as per urology Hemorrhagic cystitis management per urology Continue empiric antibiotics Trend H/H, transfuse as needed Trend renal function and electrolytes daily Thank you Cheng Bell DO
--- NOTE | 2020-06-10 14:56 | CONSULT ---
Consultation: REQUESTING PROVIDER: Dr. Arnold CONSULT REQUEST: We have been asked to medically evaluate this patient for anemia. HISTORY OF PRESENT ILLNESS: Patient is a 74 year old male with past medical history of HTN, HLD, BPH, anemia, presented to the ED from [facility] for urinary retention. Five days ago, patient was brought to the ED after he was found to have hgb of 5.8 at the [facility]. At that time, repeat cbc revealed hgb of 7.1, then 7.0, and he was discharged back to the [facility], on iron supplements. Two days prior, patient was brought back to the hospital as he was noted to be retaining urine. Patient reported he had difficulty passing urine that started 3 days ago. At the ED, root was inserted, and minimal blood was noted. Yesterday, patient was noted to be draining gross blood in the urine, and had significant suprapubic pain. Urology was consulted and root was flushed, noted to have blood clots that clogged the root. Root changed to bigger size, and patient now draining dark blood in the urine. Patient has had no colonoscopy in the past. Has family history of cancer with his younger brother and sister. The patient denies chest/abdominal/back pain, cough, and shortness of breath. Denies fever, chills, nausea, vomiting, and/or any GI symptoms. Denies any other symptoms. Allergies: NKDA Past surgical history: b/l Hip replacements , b/l knee replacements Social history: No reported hx of tobacco use, alcohol use or illicit drug use. PCP: Bladimir Goodwin Ortho: Dr. Jarquin REVIEW OF SYSTEMS: CONSTITUTIONAL: Absent: fever, chills, diaphoresis, generalized weakness, malaise, loss of appetite, weight change HEENT: Absent: rhinorrhea, nasal congestion, throat pain, throat swelling, difficulty swallowing, mouth swelling, ear pain, eye pain, visual changes CARDIOVASCULAR: Absent: chest pain, syncope, palpitations, irregular heart rate, light headedness, peripheral edema RESPIRATORY: Absent: cough, shortness of breath, dyspnea with exertion, orthopnea, wheezing, stridor, hemoptysis GASTROINTESTINAL: Absent: abdominal pain, abdominal distension, nausea, vomiting, diarrhea, constipation, melena, hematochezia GENITOURINARY: hematuria Absent: dysuria, frequency, urgency, hesitancy, flank pain, genital pain MUSCULOSKELETAL: Absent: myalgia, arthralgia, joint swelling, back pain, neck pain SKIN: Absent: rash, itching, pallor HEMATOLOGIC/IMMUNOLOGIC: Absent: easy bleeding, easy bruising, lymphadenopathy, frequent infections ENDOCRINE: Absent: unexplained weight gain, unexplained weight loss, heat intolerance, cold intolerance NEUROLOGIC: Absent: headache, focal weakness or paresthesias, dizziness, unsteady gait, seizure, mental status changes, bladder or bowel incontinence PSYCHIATRIC: Absent: anxiety, depression, suicidal or homicidal ideation, hallucinations. PHYSICAL EXAMINATION Vital Signs - 24 hr 06/09/20 06/09/20 06/09/20 18:55 21:00 22:00 Temperature 98.9 F 98.2 F Pulse Rate 90 86 Respiratory 20 Rate Blood Pressure 128/59 L 120/68 O2 Sat by Pulse 97 97 98 Oximetry (%) 06/10/20 06/10/20 06/10/20 05:46 09:00 09:46 Temperature 98.6 F 98.0 F Pulse Rate 84 97 H Respiratory 20 18 Rate Blood Pressure 124/67 134/75 O2 Sat by Pulse 98 96 96 Oximetry (%) 06/10/20 14:00 Temperature 98.2 F Pulse Rate 88 Respiratory 18 Rate Blood Pressure 104/58 L O2 Sat by Pulse 100 Oximetry (%) GENERAL: Awake, alert, and fully oriented, in no acute distress. HEAD: Normal with no signs of trauma. EYES:PERRLA, EOMI, sclera anicteric, conjunctiva clear. EARS, NOSE, THROAT: Moist mucous membranes. NECK: Normal range of motion, supple LUNGS: Breath sounds equal, clear to auscultation bilaterally. HEART: Regular rate and rhythm, normal S1 and S2 ABDOMEN: Soft, nontender, not distended, normoactive bowel sounds, +periumbilical hernia MUSCULOSKELETAL: Normal range of motion at all joints. LOWER EXTREMITIES: 2+ pulses, warm, well-perfused. No peripheral edema. NEUROLOGICAL: Cranial nerves II-XII grossly intact. Normal speech. PSYCHIATRIC: Cooperative. Good eye contact. Appropriate mood and affect. SKIN: Warm, dry, normal turgor Laboratory Results - last 24 hr 06/10/20 06/10/20 06/10/20 01:52 07:35 07:35 WBC 8.0 RBC 2.79 L Hgb 8.0 L Hct 24.1 L MCV 86.4 MCH 28.5 MCHC 33.0 RDW 17.3 H Plt Count 223 MPV 7.2 L Sodium 138 137 Potassium 4.3 4.8 Chloride 106 107 Carbon Dioxide 25 25 Anion Gap 7 L 6 L BUN 18.2 H 19.3 H Creatinine 1.3 1.4 H Est GFR (CKD-EPI)AfAm 61.43 56.16 Est GFR (CKD-EPI)NonAf 53.00 48.46 Random Glucose 131 H 108 H Calcium 8.6 8.4 L Phosphorus 3.3 Magnesium 2.3 Active Medications Generic Name Dose Route Start Last Admin Trade Name Freq PRN Reason Stop Dose Admin Acetaminophen 325 mg 06/08/20 13:25 06/09/20 09:41 Tylenol - PO 325 mg Q4H PRN Administration PAIN LEVEL 6-10 Albuterol/Ipratropium 1 amp 06/08/20 20:00 06/10/20 07:50 Duoneb - NEB Not Given RBID IZZY Atorvastatin Calcium 80 mg 06/08/20 22:00 06/09/20 21:57 Lipitor - PO 80 mg HS [facility] Administration Diltiazem HCl 120 mg 06/09/20 10:00 06/10/20 09:38 Cardizem Cd - PO 120 mg DAILY [facility] Administration Ferrous Sulfate 325 mg 06/08/20 17:30 06/10/20 08:14 Feosol - PO 325 mg BIDWM [facility] Administration Sodium Chloride 1,000 mls @ 100 mls/hr 06/09/20 23:13 06/09/20 23:44 1/2 Normal Saline IV 100 mls/hr ASDIR [facility] Administration Lactulose 20 gm 06/08/20 13:06 06/09/20 06:54 Cephulac (Oral Use) PO 20 gm DAILY PRN Administration CONSTIPATION Levofloxacin 500 mg 06/10/20 10:00 06/10/20 09:38 Levaquin - PO 500 mg DAILY@0600 [facility] Administration Oxycodone HCl 10 mg 06/08/20 13:25 06/10/20 02:57 Roxicodone - PO 10 mg Q4H PRN Administration PAIN LEVEL 6-10 Pantoprazole Sodium 40 mg 06/08/20 15:00 06/10/20 09:38 Protonix - PO 40 mg BID [facility] Administration Senna 2 tab 06/08/20 22:00 06/10/20 09:38 Senna - PO 2 tab BID [facility] Administration Tamsulosin HCl 0.4 mg 06/09/20 08:30 06/10/20 08:14 Flomax - PO 0.4 mg DAILY@0830 [facility] Administration ASSESSMENT/PLAN: Patient is a 74 year old male with past medical history of HTN, HLD, BPH, RA (s/p hip replacements), anemia, presented to the ED from [facility] for urinary retention. We have been asked to medically evaluate this patient for anemia. #Anemia -likely anemia of chronic disease with hx of CKD and arthritis, hematuria, r/o gi bleed -received 3u prbc -urology and GI on board -iron studies noted, although done after transfusion -will add b12, folate, ldh, retic count -stool occult negative on 06/05 Dispo: We will continue to follow the patient. Thank you for this consultative opportunity. Visit type - Medication Review Med list reviewed for High Risk Meds patients 65 and older: Yes - Emergency Visit Emergency Visit: Yes ED Registration Date: 06/07/20 Care time: The patient presented to the Emergency Department on the above date and was hospitalized for further evaluation of their emergent condition. - New Patient This patient is new to me today: Yes Date on this admission: 06/10/20 - Critical Care Critical Care patient: No ATTENDING PHYSICIAN STATEMENT I saw and evaluated the patient. I reviewed the resident's note and discussed the case with the resident. I agree with the resident's findings and plan as documented. SUBJECTIVE: OBJECTIVE: ASSESSMENT AND PLAN:
[2020-06-10] MEDS: ATORVASTATIN CA 80 MG TABLET (FP) PO SCH (22:05)
[2020-06-11] MEDS: SODIUM CHLORIDE 0.45% 1,000 ML IV SCH (01:32)
[2020-06-11] MEDS ORDERED: SODIUM CHLORIDE 500 ML IV STA (06:42)
--- NOTE | 2020-06-11 07:43 | CONSULT ---
Consult - text type - Consultation Consultation Note: CC: gross hematuria hpi: patient with continued gross hematuria. U/S reviewed and large prostate is noted. Serna is draining well though the urine is blood colored without clots PE VSS:afeb abd-bladder not palpable imp gross hematuria bph cystitis plan will schedule cystoscopy and bilateral retrograde pyelogram
[2020-06-11] MEDS ORDERED: FUROSEMIDE 40 MG/4 ML INJECTABLE VIAL IVPUSH ONE ×2 (08:15→14:00)
[2020-06-11 08:16] LABS: BASO % 1.1 % (0-2.0); EOS % 5.6 % (0-4.5); HEMATOCRIT 18.3 % (35.4-49); LYMPH % 23.1 % (8-40); MCH 28.4 pg (25.7-33.7); MCHC 32.9 g/dl (32.0-35.9); MEAN CELL VOLUME 86.3 fl (80-96); MONO % 10.9 % (3.8-10.2); NEUT % 59.3 % (42.8-82.8); PLATELET COUNT 173 K/MM3 (134-434); RBC 2.12 M/mm3 (4.00-5.60); RDW 17.9 % (11.9-15.9); WHITE BLOOD COUNT 5.6 K/mm3 (4.0-10.0)
[2020-06-11 08:20] LABS: BLOOD UREA NITROGEN 15.2 mg/dL (7-18); CALCIUM 7.5 mg/dL (8.5-10.1); PHOSPHOROUS 2.5 mg/dL (2.5-4.9)
[2020-06-11] MEDS: PANTOPRAZOLE 40 MG TABLET PO SCH ×3 (08:21→21:47)
[2020-06-11] MEDS: FERROUS SO4 325 MG TABLET (FP) PO SCH ×2 (08:21→16:54)
[2020-06-11] MEDS: TAMSULOSIN HCL 0.4 MG CAP PO SCH (08:21)
[2020-06-11] MEDS: ALBUTEROL SO4 2.5/IPRATROPIUM 0.5 INH SOL 3 ML VIAL.NEB. NEB SCH ×2 (08:29→20:56)
--- NOTE | 2020-06-11 08:34 | PN ---
Progress Note, Physician - Current Medication List Current Medications: Active Medications Acetaminophen (Tylenol -) 325 mg PO Q4H PRN PRN Reason: PAIN LEVEL 6-10 Last Admin: 06/09/20 09:41 Dose: 325 mg Documented by: Albuterol/Ipratropium (Duoneb -) 1 amp NEB RBID [facility] Last Admin: 06/11/20 08:29 Dose: Not Given Documented by: Atorvastatin Calcium (Lipitor -) 80 mg PO HS [facility] Last Admin: 06/10/20 22:05 Dose: 80 mg Documented by: Diltiazem HCl (Cardizem Cd -) 120 mg PO DAILY [facility] Last Admin: 06/11/20 08:21 Dose: 120 mg Documented by: Ferrous Sulfate (Feosol -) 325 mg PO BIDWM [facility] Last Admin: 06/11/20 08:21 Dose: 325 mg Documented by: Sodium Chloride (1/2 Normal Saline) 1,000 mls @ 100 mls/hr IV ASDIR [facility] Last Admin: 06/11/20 01:32 Dose: 100 mls/hr Documented by: Lactulose (Cephulac (Oral Use)) 20 gm PO DAILY PRN PRN Reason: CONSTIPATION Last Admin: 06/09/20 06:54 Dose: 20 gm Documented by: Levofloxacin (Levaquin -) 500 mg PO DAILY@0600 [facility] Last Admin: 06/11/20 05:26 Dose: 500 mg Documented by: Oxycodone HCl (Roxicodone -) 10 mg PO Q4H PRN PRN Reason: PAIN LEVEL 6-10 Last Admin: 06/10/20 22:05 Dose: 10 mg Documented by: Pantoprazole Sodium (Protonix -) 40 mg PO BID [facility] Last Admin: 06/11/20 08:21 Dose: 40 mg Documented by: Senna (Senna -) 2 tab PO BID [facility] Last Admin: 06/10/20 22:05 Dose: 2 tab Documented by: Tamsulosin HCl (Flomax -) 0.4 mg PO DAILY@0830 [facility] Last Admin: 06/11/20 08:21 Dose: 0.4 mg Documented by: - Objective Vital Signs: Vital Signs Temperature 98.5 F 06/11/20 06:42 Pulse Rate 86 06/11/20 06:42 Respiratory Rate 18 06/11/20 06:42 Blood Pressure 92/56 L 06/11/20 06:42 O2 Sat by Pulse Oximetry (%) 98 06/11/20 06:42 Cardiovascular: Yes: S1, S2 Respiratory: Yes: Regular, CTA Bilaterally Gastrointestinal: Yes: Normal Bowel Sounds, Soft Labs: CBC, BMP 06/11/20 07:20 06/11/20 07:20 INR, PTT INR 1.29 (0.83-1.09) H 06/07/20 10:26 Problem List - Problems (1) Anemia Assessment/Plan: maybe due to hematuria follow trends urology and gi consults Transfuse PRBC Code(s): D64.9 - ANEMIA, UNSPECIFIED Qualifiers: Anemia type: unspecified type Qualified Code(s): D64.9 - Anemia, unspecified (2) HTN (hypertension) Assessment/Plan: monitor Period Temp Pulse Resp BP Sys/Vo Pulse Ox Last 24 Hr 98.0 F-98.7 F 86-97 18-18 87-134/50-75 96-100 Code(s): I10 - ESSENTIAL (PRIMARY) HYPERTENSION (3) HLD (hyperlipidemia) Assessment/Plan: on statin Code(s): E78.5 - HYPERLIPIDEMIA, UNSPECIFIED (4) HENOK (acute kidney injury) Assessment/Plan: maybe obstructive monitor trends follow labs ivf renal consult Abnormal Lab Results 06/07/20 06/10/20 06/11/20 14:00 07:35 07:20 RBC 2.12 L Hgb 6.0 L* Hct 18.3 L D RDW 17.9 H MPV 7.0 L Monocytes % 10.9 H Eosinophils % 5.6 H D Retic Count Chloride Anion Gap 6 L BUN 19.3 H Creatinine 1.4 H Random Glucose 108 H Calcium 8.4 L Crossmatch See Detail 06/11/20 06/11/20 07:20 07:20 RBC Hgb Hct RDW MPV Monocytes % Eosinophils % Retic Count 3.15 H Chloride 108 H Anion Gap 6 L BUN Creatinine Random Glucose Calcium 7.5 L Crossmatch Code(s): N17.9 - ACUTE KIDNEY FAILURE, UNSPECIFIED (5) Retention, urine Assessment/Plan: root flomax urology consult Code(s): R33.9 - RETENTION OF URINE, UNSPECIFIED (6) Cystitis Assessment/Plan: PER UROLOGY--Cysto today Code(s): N30.90 - CYSTITIS, UNSPECIFIED WITHOUT HEMATURIA
--- NOTE | 2020-06-11 09:20 | PN ---
Teaching Attending Note Name of Resident: Merissa Ragland ATTENDING PHYSICIAN STATEMENT I saw and evaluated the patient. I reviewed the resident's note and discussed the case with the resident. I agree with the resident's findings and plan as documented. ASSESSMENT AND PLAN: Patient is a 74 year old male with past medical history of HTN, HLD, BPH, RA (s/p hip replacements), anemia, presented to the ED from [facility] for urinary retention. #Anemia -likely anemia of blood loss + chronic disease with hx of CKD and arthritis, Gross hematuria Cystitis urology w/u in progress will follow
[2020-06-11] MEDS: SENNOSIDES 8.6MG TABLET (FP) PO SCH ×2 (10:53→21:47)
--- NOTE | 2020-06-11 12:51 | PN ---
Progress Note, Physician History of Present Illness: Seen and examined at the bedside continues to have gorss hematuria he offers no acute complaints denies any pain, sob, N/V/D getting blood transfusion - Current Medication List Current Medications: Active Medications Acetaminophen (Tylenol -) 325 mg PO Q4H PRN PRN Reason: PAIN LEVEL 6-10 Last Admin: 06/09/20 09:41 Dose: 325 mg Documented by: Albuterol/Ipratropium (Duoneb -) 1 amp NEB RBID [facility] Last Admin: 06/11/20 08:29 Dose: Not Given Documented by: Atorvastatin Calcium (Lipitor -) 80 mg PO HS [facility] Last Admin: 06/10/20 22:05 Dose: 80 mg Documented by: Diltiazem HCl (Cardizem Cd -) 120 mg PO DAILY [facility] Last Admin: 06/11/20 10:53 Dose: Not Given Documented by: Ferrous Sulfate (Feosol -) 325 mg PO BIDWM [facility] Last Admin: 06/11/20 08:21 Dose: 325 mg Documented by: Furosemide (Lasix Injection -) 40 mg IVPUSH ONCE ONE Stop: 06/11/20 14:01 Sodium Chloride (1/2 Normal Saline) 1,000 mls @ 100 mls/hr IV ASDIR [facility] Last Admin: 06/11/20 01:32 Dose: 100 mls/hr Documented by: Lactulose (Cephulac (Oral Use)) 20 gm PO DAILY PRN PRN Reason: CONSTIPATION Last Admin: 06/09/20 06:54 Dose: 20 gm Documented by: Levofloxacin (Levaquin -) 500 mg PO DAILY@0600 [facility] Last Admin: 06/11/20 05:26 Dose: 500 mg Documented by: Oxycodone HCl (Roxicodone -) 10 mg PO Q4H PRN PRN Reason: PAIN LEVEL 6-10 Last Admin: 06/10/20 22:05 Dose: 10 mg Documented by: Pantoprazole Sodium (Protonix -) 40 mg PO BID [facility] Last Admin: 06/11/20 10:53 Dose: Not Given Documented by: Senna (Senna -) 2 tab PO BID [facility] Last Admin: 06/11/20 10:53 Dose: Not Given Documented by: Tamsulosin HCl (Flomax -) 0.4 mg PO DAILY@0830 [facility] Last Admin: 06/11/20 08:21 Dose: 0.4 mg Documented by: - Objective Vital Signs: Vital Signs Temperature 98.2 F 06/11/20 10:00 Pulse Rate 90 06/11/20 10:00 Respiratory Rate 20 06/11/20 10:00 Blood Pressure 100/46 L 06/11/20 10:00 O2 Sat by Pulse Oximetry (%) 98 06/11/20 10:00 Constitutional: Yes: No Distress, Calm HENT: Yes: Atraumatic Neck: Yes: Supple Cardiovascular: Yes: Regular Rate and Rhythm Respiratory: Yes: Regular Gastrointestinal: Yes: Soft. No: Tenderness Genitourinary: Yes: Root Present (bloody urine) Extremities: No: Cyanosis Edema: No Neurological: Yes: Alert, Oriented Labs: CBC, BMP 06/11/20 07:20 06/11/20 07:20 INR, PTT INR 1.29 (0.83-1.09) H 06/07/20 10:26 Assessment/Plan 74 year old male with history of hypertension, hyperlipidemia, anemia, recent hip replacement, urinary retention with chronic indwelling root who presented from rehab with root obstruction and no urine output and found to have HENOK and acute on chronic anemia. 1. Acute kidney injury due to bladder outlet obstruction 2. Hemorrhagic cystitis 3. Acute on chronic anemia 4. Chronic urinary retention requiring Root 5. Hypertension 6. Hyperlipidemia Renal function now improved, Cr 1 Continue 1/2 NS at 84cc per hour to promote urine output Continue Root as per urology Hemorrhagic cystitis management per urology planned for cystoscpy today Continue empiric antibiotics transfuse 2 PRBC today Trend renal function and electrolytes daily Thank you Cheng Bell DO
[2020-06-11] MEDS ORDERED: ONDANSETRON 4 MG/2 ML VIAL IVPUSH PRN ×2 (17:52→20:14)
[2020-06-11] MEDS ORDERED: PROPOFOL 20 ML ONE ×2 (17:56)
[2020-06-11] MEDS ORDERED: SUCCINYLCHOLINE CHLORIDE 200 MG/10 ML SYRINGE ONE (17:56)
[2020-06-11] MEDS ORDERED: MIDAZOLAM HCL 2 MG/2 ML SINGLE DOSE VIAL ONE (17:57)
[2020-06-11] MEDS ORDERED: LACTATED RINGERS SOLUTION 1,000 ML IV SCH ×2 (18:00→20:14)
[2020-06-11] MEDS ORDERED: GENTAMICIN SO4 80 MG/2 ML VIAL ONE (18:43)
[2020-06-11] MEDS ORDERED: GENTAMICIN SO4 80 MG/2 ML VIAL IVPB ONE (18:45)
[2020-06-11] MEDS ORDERED: ceFAZolin SODIUM 1 GM VIAL IVPB ONE (18:45)
--- NOTE | 2020-06-11 19:35 | OP ---
Operative Note - Note: Operative Date: 06/11/20 Pre-Operative Diagnosis: gross hematuria with clot retention Operation: cystoscopy/right retrograde pyelogram/left ureteroscopy/evacuation of clots Findings: patient with significant bph with large median lobe. Bleeding appears to be coming from the prostate and is not active. Clots irrigated. Right retrograde pyelogram showed a mild hydronephrosis with adequate drainage due to J hooking of ureter due to BPH. Left ureter had more severe J hooking of ureter which did not allow for passage of a wire with ureteroscopy or the passage of an open ended catheter. No evidence of bladder tumor noted. Post-Operative Diagnosis: Same as Pre-op Surgeon: Deep Liriano Anesthesia: General
[2020-06-11] MEDS ORDERED: LACTULOSE 20 GM/30 ML UDC (FOR ORAL USE ONLY) PO PRN (20:14)
[2020-06-11] MEDS ORDERED: LIDOCAINE HCL 2% JELLY 10 ML CARTRIDGE UR ONE (20:14)
[2020-06-11] MEDS: ATORVASTATIN CA 80 MG TABLET (FP) PO SCH (21:47)
[2020-06-12] MEDS: ACETAMINOPHEN 325 MG TABLET (FP) PO PRN ×3 (00:31→10:08)
[2020-06-12] MEDS ORDERED: SIMETHICONE 80 MG TAB.CHEW (FP) PO ONE (05:35)
[2020-06-12] MEDS: SODIUM CHLORIDE 0.45% 1,000 ML IV SCH ×3 (06:39→18:57)
[2020-06-12 07:55] LABS: BLOOD UREA NITROGEN 12.3 mg/dL (7-18); CREATININE 1.2 mg/dL (0.55-1.3); POTASSIUM 3.8 mmol/L (3.5-5.1)
[2020-06-12 08:01] LABS: HEMATOCRIT 24.9 % (35.4-49); HEMOGLOBIN 8.4 GM/dL (11.7-16.9); MCHC 33.8 g/dl (32.0-35.9); MEAN CELL VOLUME 85.9 fl (80-96); MEAN PLT VOLUME 7.3 fl (7.5-11.1); PLATELET COUNT 183 K/MM3 (134-434); RDW 17.6 % (11.9-15.9)
--- NOTE | 2020-06-12 08:38 | PN ---
Progress Note, Physician - Current Medication List Current Medications: Active Medications Acetaminophen (Tylenol -) 325 mg PO Q4H PRN PRN Reason: PAIN LEVEL 6-10 Last Admin: 06/12/20 05:51 Dose: 325 mg Documented by: Albuterol/Ipratropium (Duoneb -) 1 amp NEB RBID [facility] Atorvastatin Calcium (Lipitor -) 80 mg PO HS [facility] Last Admin: 06/11/20 21:47 Dose: 80 mg Documented by: Diltiazem HCl (Cardizem Cd -) 120 mg PO DAILY [facility] Fentanyl (Sublimaze Injection -) 50 mcg IVPUSH [id number] PRN PRN Reason: PAIN-PACU ORDER X 4 DOSES ONLY Last Admin: 06/11/20 20:50 Dose: 50 mcg Documented by: Ferrous Sulfate (Feosol -) 325 mg PO BIDWM [facility] Sodium Chloride (1/2 Normal Saline) 1,000 mls @ 100 mls/hr IV ASDIR [facility] Last Admin: 06/12/20 06:39 Dose: 100 mls/hr Documented by: Lactulose (Cephulac (Oral Use)) 20 gm PO DAILY PRN PRN Reason: CONSTIPATION Levofloxacin (Levaquin -) 500 mg PO DAILY@0600 [facility] Last Admin: 06/12/20 05:49 Dose: 500 mg Documented by: Ondansetron HCl (Zofran Injection) 4 mg IVPUSH Q6H PRN PRN Reason: NAUSEA AND/OR VOMITING Pantoprazole Sodium (Protonix -) 40 mg PO BID [facility] Last Admin: 06/11/20 21:47 Dose: 40 mg Documented by: Senna (Senna -) 2 tab PO BID [facility] Last Admin: 06/11/20 21:47 Dose: 2 tab Documented by: Tamsulosin HCl (Flomax -) 0.4 mg PO DAILY@0830 [facility] - Objective Vital Signs: Vital Signs Temperature 97.9 F 06/12/20 05:09 Pulse Rate 78 06/12/20 05:09 Respiratory Rate 18 06/12/20 05:09 Blood Pressure 121/63 06/12/20 05:09 O2 Sat by Pulse Oximetry (%) 100 06/12/20 05:09 Cardiovascular: Yes: S1, S2 Respiratory: Yes: Regular, CTA Bilaterally Gastrointestinal: Yes: Normal Bowel Sounds, Soft Genitourinary: Yes: Serna Present, Hematuria Labs: CBC, BMP 06/12/20 07:10 06/12/20 07:10 INR, PTT INR 1.29 (0.83-1.09) H 06/07/20 10:26 Problem List - Problems (1) Anemia Code(s): D64.9 - ANEMIA, UNSPECIFIED Qualifiers: Anemia type: unspecified type Qualified Code(s): D64.9 - Anemia, unspecified (2) HTN (hypertension) Code(s): I10 - ESSENTIAL (PRIMARY) HYPERTENSION (3) HLD (hyperlipidemia) Code(s): E78.5 - HYPERLIPIDEMIA, UNSPECIFIED (4) HENOK (acute kidney injury) Code(s): N17.9 - ACUTE KIDNEY FAILURE, UNSPECIFIED (5) Retention, urine Code(s): R33.9 - RETENTION OF URINE, UNSPECIFIED (6) Cystitis Code(s): N30.90 - CYSTITIS, UNSPECIFIED WITHOUT HEMATURIA
[2020-06-12] MEDS ORDERED: DEXTROSE 5%-WATER - 50 ML IVPB ONE ×2 (09:42→09:49)
[2020-06-12] MEDS ORDERED: cefTRIAXone SODIUM 1 GM VIAL ONE ×2 (09:42→09:49)
[2020-06-12] MEDS: CEFTRIAXONE 1 GM in DEXTROSE 5%-WATER - 50 ML IVPB SCH (09:57)
[2020-06-12] MEDS: FERROUS SO4 325 MG TABLET (FP) PO SCH ×2 (09:58→18:59)
[2020-06-12] MEDS: PANTOPRAZOLE 40 MG TABLET PO SCH ×2 (10:08→21:12)
[2020-06-12] MEDS: TAMSULOSIN HCL 0.4 MG CAP PO SCH (10:08)
[2020-06-12] MEDS: SENNOSIDES 8.6MG TABLET (FP) PO SCH ×2 (10:08→21:12)
[2020-06-12] MEDS: ALBUTEROL SO4 2.5/IPRATROPIUM 0.5 INH SOL 3 ML VIAL.NEB. NEB SCH ×2 (10:58→20:26)
--- NOTE | 2020-06-12 13:47 | PN ---
Progress Note, Physician History of Present Illness: Seen and examined at the bedside s/p cystoscopy yesteday continues to have gorss hematuria he offers no acute complaints denies any pain, sob, N/V/D s/p blood transfusion - Current Medication List Current Medications: Active Medications Acetaminophen (Tylenol -) 325 mg PO Q4H PRN PRN Reason: PAIN LEVEL 6-10 Last Admin: 06/12/20 10:08 Dose: 325 mg Documented by: Albuterol/Ipratropium (Duoneb -) 1 amp NEB RBID [facility] Last Admin: 06/12/20 10:58 Dose: Not Given Documented by: Atorvastatin Calcium (Lipitor -) 80 mg PO HS [facility] Last Admin: 06/11/20 21:47 Dose: 80 mg Documented by: Diltiazem HCl (Cardizem Cd -) 120 mg PO DAILY [facility] Last Admin: 06/12/20 10:08 Dose: 120 mg Documented by: Fentanyl (Sublimaze Injection -) 50 mcg IVPUSH [id number] PRN PRN Reason: PAIN-PACU ORDER X 4 DOSES ONLY Last Admin: 06/11/20 20:50 Dose: 50 mcg Documented by: Ferrous Sulfate (Feosol -) 325 mg PO BIDWM [facility] Last Admin: 06/12/20 09:58 Dose: 325 mg Documented by: Sodium Chloride (1/2 Normal Saline) 1,000 mls @ 100 mls/hr IV ASDIR [facility] Last Admin: 06/12/20 10:09 Dose: Not Given Documented by: Ceftriaxone Sodium 1 gm/ (Dextrose) 50 mls @ 100 mls/hr IVPB DAILY [facility]; Protocol Last Admin: 06/12/20 09:57 Dose: 100 mls/hr Documented by: Lactulose (Cephulac (Oral Use)) 20 gm PO DAILY PRN PRN Reason: CONSTIPATION Ondansetron HCl (Zofran Injection) 4 mg IVPUSH Q6H PRN PRN Reason: NAUSEA AND/OR VOMITING Pantoprazole Sodium (Protonix -) 40 mg PO BID [facility] Last Admin: 06/12/20 10:08 Dose: 40 mg Documented by: Senna (Senna -) 2 tab PO BID [facility] Last Admin: 06/12/20 10:08 Dose: 2 tab Documented by: Tamsulosin HCl (Flomax -) 0.4 mg PO DAILY@0830 [facility] Last Admin: 06/12/20 10:08 Dose: 0.4 mg Documented by: - Objective Vital Signs: Vital Signs Temperature 98.4 F 06/12/20 13:42 Pulse Rate 86 06/12/20 13:42 Respiratory Rate 18 06/12/20 13:42 Blood Pressure 118/59 L 06/12/20 13:42 O2 Sat by Pulse Oximetry (%) 100 06/12/20 05:09 Constitutional: Yes: No Distress HENT: Yes: Atraumatic Neck: Yes: Supple Cardiovascular: Yes: Regular Rate and Rhythm Respiratory: Yes: Regular, CTA Bilaterally Gastrointestinal: Yes: Soft. No: Tenderness Extremities: No: Cyanosis Edema: Yes Edema: LLE: Trace, RLE: Trace Neurological: Yes: Alert Labs: CBC, BMP 06/12/20 07:10 06/12/20 07:10 INR, PTT INR 1.29 (0.83-1.09) H 06/07/20 10:26 Assessment/Plan 74 year old male with history of hypertension, hyperlipidemia, anemia, recent hip replacement, urinary retention with chronic indwelling root who presented from rehab with root obstruction and no urine output and found to have HENOK and acute on chronic anemia. 1. Acute kidney injury due to bladder outlet obstruction 2. Hemorrhagic cystitis 3. Acute on chronic anemia 4. Chronic urinary retention requiring Root 5. Hypertension 6. Hyperlipidemia Renal function improved and stable Decrease IVF rate as pt has some edema Continue Root as per urology Hemorrhagic cystitis management per urology no bladder tumor noted on cystoscopy Continue empiric antibiotics s/p blood transfusion Trend renal function and electrolytes daily Thank you Cheng Bell DO
[2020-06-12] MEDS: ATORVASTATIN CA 80 MG TABLET (FP) PO SCH (21:12)
[2020-06-13] MEDS ORDERED: SIMETHICONE 80 MG TAB.CHEW (FP) PO PRN (05:15)
[2020-06-13] MEDS ORDERED: BENZOCAINE/MENTH/CETYLPYRD CL 1 EACH LOZENGE MM PRN (05:16)
[2020-06-13] MEDS: ALBUTEROL SO4 2.5/IPRATROPIUM 0.5 INH SOL 3 ML VIAL.NEB. NEB SCH ×2 (07:15→20:43)
[2020-06-13] MEDS: FERROUS SO4 325 MG TABLET (FP) PO SCH ×2 (08:44→17:05)
[2020-06-13] MEDS: TAMSULOSIN HCL 0.4 MG CAP PO SCH (08:44)
--- NOTE | 2020-06-13 09:10 | OP ---
DATE OF OPERATION: 06/11/2020 PREOPERATIVE DIAGNOSIS: Gross hematuria with clot retention. POSTOPERATIVE DIAGNOSIS: Gross hematuria with clot retention. PROCEDURE: Cystoscopy, right retrograde pyelogram, left ureteroscopy, and evacuation of clots. ATTENDING SURGEON: Erwin Csatillo MD ANESTHESIA: General. DESCRIPTION OF PROCEDURE: The patient was brought in the operating room, placed in supine position on the operating room table. Anesthesia and preoperative antibiotics were administered. At this point, cystoscopy was performed. Multiple clots were noted within the bladder. A 3+ obstructive prostate with a large median lobe was noted. At this point, evacuation of clots using an Meshfire evacuator was utilized. Clots were removed. Cystoscopy was then performed, and there was noted to be a very large median lobe which covered both ureteral orifices. Findings inside the bladder were consistent with either cystitis or catheter trauma due to the Serna being present in the bladder for a few days. The right ureteral orifice was then intubated with an open-ended catheter, and a retrograde pyelogram was performed. Mild hydronephrosis with adequate drainage was noted. This was due to J-hooking of the distal right ureter. The J-hooking is secondary to the substantial benign prostatic hypertrophy which is present. Attempts at passing a wire into the left ureteral orifice were unsuccessful. An open-ended catheter also could not be passed. Ureteroscopy was performed, and the left ureteral orifice was intubated; however, the angulation with the presence of the large median lobe did not allow for passage of the wire proximally into the proximal ureter. A left retrograde pyelogram could not be performed. Patient tolerated the procedure very well. No complications were noted. ERWIN CASTILLO M.D. [id number]
[2020-06-13 09:12] LABS: BASO % 0.8 % (0-2.0); HEMATOCRIT 23.2 % (35.4-49); HEMOGLOBIN 7.9 GM/dL (11.7-16.9); LYMPH % 18.2 % (8-40); MCH 29.1 pg (25.7-33.7); MCHC 33.9 g/dl (32.0-35.9); MEAN CELL VOLUME 85.9 fl (80-96); MEAN PLT VOLUME 7.5 fl (7.5-11.1); MONO % 10.6 % (3.8-10.2); NEUT % 65.4 % (42.8-82.8); PLATELET COUNT 159 K/MM3 (134-434); RBC 2.71 M/mm3 (4.00-5.60); RDW 17.8 % (11.9-15.9); WHITE BLOOD COUNT 6.2 K/mm3 (4.0-10.0)
[2020-06-13] MEDS ORDERED: DEXTROSE 5%-WATER - 50 ML IVPB ONE (09:44)
[2020-06-13] MEDS ORDERED: cefTRIAXone SODIUM 1 GM VIAL ONE (09:44)
[2020-06-13] MEDS: CEFTRIAXONE 1 GM in DEXTROSE 5%-WATER - 50 ML IVPB SCH (09:47)
[2020-06-13] MEDS: SENNOSIDES 8.6MG TABLET (FP) PO SCH ×2 (09:48→21:38)
[2020-06-13] MEDS: PANTOPRAZOLE 40 MG TABLET PO SCH ×2 (09:48→21:38)
[2020-06-13 09:52] LABS: ALBUMIN 2.5 g/dl (3.4-5.0); BILIRUBIN,TOTAL 0.4 mg/dL (0.2-1); BLOOD UREA NITROGEN 9.3 mg/dL (7-18); CALCIUM 7.9 mg/dL (8.5-10.1); POTASSIUM 3.9 mmol/L (3.5-5.1); TOT PROT 5.7 g/dl (6.4-8.2)
--- NOTE | 2020-06-13 10:36 | PN ---
Progress Note, Physician Chief Complaint: Hematuria History of Present Illness: The patient is a 74 year old male with a significant past medical history of HTN, HLD, and anemia (baseline hgb around 7) who presents to the emergency department, [facility] from [facility], for evaluation of the inability to pass urine through his root catheter that began three days ago. The patient was found to have a hemoglobin of 6.9 today. The patient presented to the ED two days ago and had a recorded hemoglobin of 5.9 that elevated to 7 prior to discharge. His root was changed yesterday but no urine was passed after this. 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- continue to monitor - Current Medication List Current Medications: Active Medications Acetaminophen (Tylenol -) 325 mg PO Q4H PRN PRN Reason: PAIN LEVEL 6-10 Last Admin: 06/12/20 10:08 Dose: 325 mg Documented by: Albuterol/Ipratropium (Duoneb -) 1 amp NEB RBID [facility] Last Admin: 06/13/20 07:15 Dose: Not Given Documented by: Atorvastatin Calcium (Lipitor -) 80 mg PO HS [facility] Last Admin: 06/12/20 21:12 Dose: 80 mg Documented by: Benzocaine/Menthol (Cepacol Lozenge -) 1 each MM PRN PRN PRN Reason: SORE THROAT Cyanocobalamin (Vitamin B12 Injection -) 1,000 mcg IM DAILY [facility] Diltiazem HCl (Cardizem Cd -) 120 mg PO DAILY [facility] Last Admin: 06/13/20 09:48 Dose: 120 mg Documented by: Fentanyl (Sublimaze Injection -) 50 mcg IVPUSH [id number] PRN PRN Reason: PAIN-PACU ORDER X 4 DOSES ONLY Last Admin: 06/11/20 20:50 Dose: 50 mcg Documented by: Ferrous Sulfate (Feosol -) 325 mg PO BIDWM [facility] Last Admin: 06/13/20 08:44 Dose: 325 mg Documented by: Ceftriaxone Sodium 1 gm/ (Dextrose) 50 mls @ 100 mls/hr IVPB DAILY [facility]; Protocol Last Admin: 06/13/20 09:47 Dose: 100 mls/hr Documented by: Sodium Chloride (1/2 Normal Saline) 1,000 mls @ 75 mls/hr IV ASDIR [facility] Last Admin: 06/12/20 18:57 Dose: 75 mls/hr Documented by: Lactulose (Cephulac (Oral Use)) 20 gm PO DAILY PRN PRN Reason: CONSTIPATION Ondansetron HCl (Zofran Injection) 4 mg IVPUSH Q6H PRN PRN Reason: NAUSEA AND/OR VOMITING Pantoprazole Sodium (Protonix -) 40 mg PO BID [facility] Last Admin: 06/13/20 09:48 Dose: 40 mg Documented by: Senna (Senna -) 2 tab PO BID [facility] Last Admin: 06/13/20 09:48 Dose: 2 tab Documented by: Simethicone (Mylicon -) 80 mg PO Q4H PRN PRN Reason: GAS Tamsulosin HCl (Flomax -) 0.4 mg PO DAILY@0830 [facility] Last Admin: 06/13/20 08:44 Dose: 0.4 mg Documented by: - Objective Vital Signs: Vital Signs Temperature 98.4 F 06/13/20 05:33 Pulse Rate 74 06/13/20 05:33 Respiratory Rate 18 06/13/20 05:33 Blood Pressure 108/58 L 06/13/20 05:33 O2 Sat by Pulse Oximetry (%) 99 06/13/20 05:33 Constitutional: Yes: Well Nourished, No Distress, Calm Cardiovascular: Yes: Regular Rate and Rhythm Respiratory: Yes: Regular, CTA Bilaterally Gastrointestinal: Yes: Normal Bowel Sounds, Soft Genitourinary: Yes: Root Present, Hematuria Musculoskeletal: Yes: WNL Extremities: Yes: WNL Edema: No Peripheral Pulses WNL: Yes Neurological: Yes: Alert, Oriented Psychiatric: Yes: Alert, Oriented Labs: CBC, BMP 06/13/20 08:00 06/13/20 08:00 INR, PTT INR 1.29 (0.83-1.09) H 06/07/20 10:26 Problem List - Problems (1) Acute blood loss anemia Assessment/Plan: -Urology consult appreciated -S/P cystoscopy on 06/11/20 Pre-Operative Diagnosis: gross hematuria with clot retention Operation: cystoscopy/right retrograde pyelogram/left ureteroscopy/evacuation of clots Findings: patient with significant bph with large median lobe. Bleeding appears to be coming from the prostate and is not active. Clots irrigated. Right retrograde pyelogram showed a mild hydronephrosis with adequate drainage due to J hooking of ureter due to BPH. Left ureter had more severe J hooking of ureter which did not allow for passage of a wire with ureteroscopy or the passage of an open ended catheter. No evidence of bladder tumor noted. Post-Operative Diagnosis: Same as Pre-op -Monitor H/H daily -Transfuse for hg<7.0 -Continue Feosol BID -Also B 12 def -Cyanocobalamine 1g IM daily--transition o 2500 mcg Sl daily outpatient -Check Stool OB Problems reviewed: Yes Code(s): D62 - ACUTE POSTHEMORRHAGIC ANEMIA (2) HENOK (acute kidney injury) Assessment/Plan: -Likely 2/2 to urinary retention -Nephrology consult -Cr at baseline -Continue IVF Problems reviewed: Yes Code(s): N17.9 - ACUTE KIDNEY FAILURE, UNSPECIFIED (3) Cystitis Assessment/Plan: -UC negative -ID consult -Afebrile -Continue rocephin as per ID Problems reviewed: Yes Code(s): N30.90 - CYSTITIS, UNSPECIFIED WITHOUT HEMATURIA Assessment/Plan See problem list
[2020-06-13] MEDS: CYANOCOBALAMIN (VITAMIN B-12) 1000 MCG/1 ML VIAL IM SCH (11:33)
[2020-06-13] MEDS: SODIUM CHLORIDE 0.45% 1,000 ML IV SCH ×2 (17:05→20:11)
--- NOTE | 2020-06-13 18:59 | PN ---
GI Progress Note Subjective: still with hematuria, deneis gi symptoms - Objective Vital Signs: Vital Signs Temperature 98.8 F 06/13/20 14:47 Pulse Rate 91 H 06/13/20 14:47 Respiratory Rate 18 06/13/20 14:47 Blood Pressure 147/96 06/13/20 14:47 O2 Sat by Pulse Oximetry (%) 99 06/13/20 09:00 Constitutional: No Distress Eyes: Yes: Conjunctiva Clear, Occular Prosthesis Neck: Yes: Supple Cardiovascular: Yes: Regular Rate and Rhythm Respiratory: Yes: CTA Bilaterally ...Palpate: Yes: Soft. No: Firm/Rigid, Guarding, Hepatomegaly, Mass, Pulsatile Mass, Splenomegaly, Tenderness Labs: CBC, BMP 06/13/20 08:00 06/13/20 08:00 INR, PTT INR 1.29 (0.83-1.09) H 06/07/20 10:26 Problem List - Problems (1) Anemia Assessment/Plan: secondary to gross hematuria R> gi w/u as an outpatient the patient was made aware to follow up Code(s): D64.9 - ANEMIA, UNSPECIFIED Qualifiers: Anemia type: unspecified type Qualified Code(s): D64.9 - Anemia, unspecified
[2020-06-13] MEDS: ATORVASTATIN CA 80 MG TABLET (FP) PO SCH (21:38)
[2020-06-14] MEDS: SODIUM CHLORIDE 0.45% 1,000 ML IV SCH ×2 (06:29→21:00)
[2020-06-14] MEDS: ALBUTEROL SO4 2.5/IPRATROPIUM 0.5 INH SOL 3 ML VIAL.NEB. NEB SCH ×2 (07:30→20:26)
[2020-06-14 09:19] LABS: BASO % 1.1 % (0-2.0); EOS % 4.9 % (0-4.5); LYMPH % 15.3 % (8-40); MCH 30.1 pg (25.7-33.7); MCHC 34.6 g/dl (32.0-35.9); MEAN CELL VOLUME 87.1 fl (80-96); MEAN PLT VOLUME 7.4 fl (7.5-11.1); MONO % 12.6 % (3.8-10.2); NEUT % 66.1 % (42.8-82.8); PLATELET COUNT 156 K/MM3 (134-434); RBC 2.64 M/mm3 (4.00-5.60); RDW 17.7 % (11.9-15.9); WHITE BLOOD COUNT 5.4 K/mm3 (4.0-10.0)
[2020-06-14] MEDS ORDERED: PT OWN MED DRAWER 7, Y5N ONE (09:20)
[2020-06-14] MEDS ORDERED: cefTRIAXone SODIUM 1 GM VIAL ONE (09:20)
[2020-06-14] MEDS ORDERED: DEXTROSE 5%-WATER - 50 ML IVPB ONE (09:21)
[2020-06-14] MEDS: CEFTRIAXONE 1 GM in DEXTROSE 5%-WATER - 50 ML IVPB SCH (09:23)
[2020-06-14] MEDS: PANTOPRAZOLE 40 MG TABLET PO SCH ×2 (09:24→21:00)
[2020-06-14] MEDS: FERROUS SO4 325 MG TABLET (FP) PO SCH ×2 (09:24→17:09)
[2020-06-14] MEDS: TAMSULOSIN HCL 0.4 MG CAP PO SCH (09:24)
[2020-06-14] MEDS: CYANOCOBALAMIN (VITAMIN B-12) 1000 MCG/1 ML VIAL IM SCH (09:25)
[2020-06-14] MEDS: SENNOSIDES 8.6MG TABLET (FP) PO SCH ×2 (09:29→21:00)
--- NOTE | 2020-06-14 10:44 | PN ---
Progress Note, Physician Chief Complaint: Hematuria History of Present Illness: The patient is a 74 year old male with a significant past medical history of HTN, HLD, and anemia (baseline hgb around 7) who presents to the emergency department, [facility] from [facility], for evaluation of the inability to pass urine through his root catheter that began three days ago. The patient was found to have a hemoglobin of 6.9 today. The patient presented to the ED two days ago and had a recorded hemoglobin of 5.9 that elevated to 7 prior to discharge. His root was changed yesterday but no urine was passed after this. 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 - Current Medication List Current Medications: Active Medications Acetaminophen (Tylenol -) 325 mg PO Q4H PRN PRN Reason: PAIN LEVEL 6-10 Last Admin: 06/12/20 10:08 Dose: 325 mg Documented by: Albuterol/Ipratropium (Duoneb -) 1 amp NEB RBID [facility] Last Admin: 06/14/20 07:30 Dose: Not Given Documented by: Atorvastatin Calcium (Lipitor -) 80 mg PO HS [facility] Last Admin: 06/13/20 21:38 Dose: 80 mg Documented by: Benzocaine/Menthol (Cepacol Lozenge -) 1 each MM PRN PRN PRN Reason: SORE THROAT Cyanocobalamin (Vitamin B12 Injection -) 1,000 mcg IM DAILY [facility] Last Admin: 06/14/20 09:25 Dose: 1,000 mcg Documented by: Diltiazem HCl (Cardizem Cd -) 120 mg PO DAILY [facility] Last Admin: 06/14/20 09:24 Dose: 120 mg Documented by: Fentanyl (Sublimaze Injection -) 50 mcg IVPUSH [id number] PRN PRN Reason: PAIN-PACU ORDER X 4 DOSES ONLY Last Admin: 06/11/20 20:50 Dose: 50 mcg Documented by: Ferrous Sulfate (Feosol -) 325 mg PO BIDWM [facility] Last Admin: 06/14/20 09:24 Dose: 325 mg Documented by: Ceftriaxone Sodium 1 gm/ (Dextrose) 50 mls @ 100 mls/hr IVPB DAILY [facility]; Protocol Last Admin: 06/14/20 09:23 Dose: 100 mls/hr Documented by: Sodium Chloride (1/2 Normal Saline) 1,000 mls @ 75 mls/hr IV ASDIR [facility] Last Admin: 06/14/20 06:29 Dose: 75 mls/hr Documented by: Lactulose (Cephulac (Oral Use)) 20 gm PO DAILY PRN PRN Reason: CONSTIPATION Ondansetron HCl (Zofran Injection) 4 mg IVPUSH Q6H PRN PRN Reason: NAUSEA AND/OR VOMITING Pantoprazole Sodium (Protonix -) 40 mg PO BID [facility] Last Admin: 06/14/20 09:24 Dose: 40 mg Documented by: Senna (Senna -) 2 tab PO BID [facility] Last Admin: 06/14/20 09:29 Dose: 2 tab Documented by: Simethicone (Mylicon -) 80 mg PO Q4H PRN PRN Reason: GAS Last Admin: 06/13/20 20:12 Dose: 80 mg Documented by: Tamsulosin HCl (Flomax -) 0.4 mg PO DAILY@0830 [facility] Last Admin: 06/14/20 09:24 Dose: 0.4 mg Documented by: - Objective Vital Signs: Vital Signs Temperature 99.0 F 06/14/20 09:00 Pulse Rate 91 H 06/14/20 09:00 Respiratory Rate 18 06/14/20 09:00 Blood Pressure 115/60 06/14/20 09:00 O2 Sat by Pulse Oximetry (%) 99 06/14/20 09:00 Constitutional: Yes: Well Nourished, No Distress, Calm Cardiovascular: Yes: Regular Rate and Rhythm Respiratory: Yes: Regular, CTA Bilaterally Gastrointestinal: Yes: Normal Bowel Sounds, Soft Genitourinary: Yes: Root Present, Hematuria Musculoskeletal: Yes: WNL Extremities: Yes: WNL Edema: No Peripheral Pulses WNL: Yes Neurological: Yes: Alert, Oriented Psychiatric: Yes: Alert, Oriented Labs: CBC, BMP 06/14/20 08:40 06/13/20 08:00 INR, PTT INR 1.29 (0.83-1.09) H 06/07/20 10:26 Problem List - Problems (1) Acute blood loss anemia Assessment/Plan: -Urology consult appreciated -S/P cystoscopy on 06/11/20 Pre-Operative Diagnosis: gross hematuria with clot retention Operation: cystoscopy/right retrograde pyelogram/left ureteroscopy/evacuation of clots Findings: patient with significant bph with large median lobe. Bleeding appears to be coming from the prostate and is not active. Clots irrigated. Right retrograde pyelogram showed a mild hydronephrosis with adequate drainage due to J hooking of ureter due to BPH. Left ureter had more severe J hooking of ureter which did not allow for passage of a wire with ureteroscopy or the passage of an open ended catheter. No evidence of bladder tumor noted. Post-Operative Diagnosis: Same as Pre-op -Monitor H/H daily -Transfuse for hg<7.0 -Continue Feosol BID -Also B 12 def-Cyanocobalamine 1g IM daily--transition o 2500 mcg Sl daily outpatient -Stool OB negative Problems reviewed: Yes Code(s): D62 - ACUTE POSTHEMORRHAGIC ANEMIA (2) HENOK (acute kidney injury) Assessment/Plan: -Likely 2/2 to urinary retention -Nephrology consult -Cr at baseline -Continue IVF Problems reviewed: Yes Code(s): N17.9 - ACUTE KIDNEY FAILURE, UNSPECIFIED (3) Cystitis Assessment/Plan: -UC negative -ID consult -Afebrile -Continue rocephin as per ID Problems reviewed: Yes Code(s): N30.90 - CYSTITIS, UNSPECIFIED WITHOUT HEMATURIA Assessment/Plan See problem list
--- NOTE | 2020-06-14 20:19 | PN ---
Progress Note (short form) - Note Progress Note: ID CONSULT DICTATED UTI R/O SEPSIS SECONDARY TO UTI AWAIT C/S CONTINUE CEFTRIAXONE
[2020-06-14] MEDS: ATORVASTATIN CA 80 MG TABLET (FP) PO SCH (20:59)
[2020-06-14] MEDS: ACETAMINOPHEN 325 MG TABLET (FP) PO PRN (21:02)
[2020-06-15 05:13] VITALS: TEMP 98.9
[2020-06-15] MEDS: FERROUS SO4 325 MG TABLET (FP) PO SCH (07:53)
[2020-06-15] MEDS: TAMSULOSIN HCL 0.4 MG CAP PO SCH (07:54)
--- NOTE | 2020-06-15 08:08 | DS ---
Physical Examination Vital Signs: Vital Signs Temperature 98.9 F 06/15/20 05:11 Pulse Rate 82 06/15/20 05:11 Respiratory Rate 20 06/15/20 05:11 Blood Pressure 120/69 06/15/20 05:11 O2 Sat by Pulse Oximetry (%) 98 06/15/20 05:11 Constitutional: Yes: Mild Distress Cardiovascular: Yes: Regular Rate and Rhythm Respiratory: Yes: WNL Gastrointestinal: Yes: Soft Renal/: Yes: Fletcher Present, Hematuria Musculoskeletal: Yes: Back Pain Labs: CBC, BMP 06/14/20 08:40 06/13/20 08:00 Discharge Summary Problems reviewed: Yes Reason For Visit: ACUTE KIDNEY INJURY,ANEMIA Current Active Problems HENOK (acute kidney injury) (Acute) Acute blood loss anemia (Acute) Anemia (Acute) Cystitis (Acute) HLD (hyperlipidemia) (Acute) HTN (hypertension) (Acute) Retention, urine (Acute) Procedures: Principal: CYSTOSCOPY/SONO Hospital Course: ADMITTED TRANSFUSED AND TREATED FOR URINARY RETENTION, CYSTOSCOPY DONE WILL NEED A TURP OUTPATIENT Plan of Treatment: SEND TO SNF AND OUTPATIENT FOLLOW UP WITH DR PERES FOR TURP Condition: Good - Instructions Diet, Activity, Other Instructions: SEE DR PERES FOR TURP IN 1 WEEK OUTPATIENT KEEP FLETCHER INSERTED Referrals: Colby Jeronimo MD [Primary Care Provider] - Disposition: [facility] - Home Medications Comprehensive Discharge Medication List: Ambulatory Orders Albuterol 2.5/Ipratropium 0.5 [Duoneb -] 1 amp NEB BID 06/05/20 Aspirin [ASA -] 81 mg PO BID 06/05/20 Atorvastatin Ca [Lipitor] 80 mg PO HS 06/05/20 Bacitracin - [Bacitracin Topical Ointment -] 1 applic TP DAILY 06/05/20 Diltiazem HCl [Diltiazem 24Hr ER] 120 mg PO DAILY 06/05/20 Ferrous Sulfate [Feosol] 325 mg PO BID 06/05/20 Furosemide [Lasix -] 40 mg PO DAILY 06/05/20 Lactulose [Enulose] 30 ml PO DAILY PRN 06/05/20 Oxycodone HCl/Acetaminophen [Oxycodone-Acetaminophen 10-325] 1 each PO Q4H PRN 06/05/20 Pantoprazole Sodium [Protonix -] 40 mg PO BID 06/05/20 Sennosides [Senokotxtra] 17.2 mg PO BID 06/05/20 Sulfamethoxazole/Trimethoprim [Bactrim Ds -] 1 tab PO BID 06/05/20 Tamsulosin HCl [Flomax] 0.4 mg PO DAILY 06/05/20
[2020-06-15] MEDS: ALBUTEROL SO4 2.5/IPRATROPIUM 0.5 INH SOL 3 ML VIAL.NEB. NEB SCH (08:45)
[2020-06-15 08:54] LABS: BASO % 1.1 % (0-2.0); EOS % 5.3 % (0-4.5); HEMATOCRIT 26.2 % (35.4-49); HEMOGLOBIN 8.7 GM/dL (11.7-16.9); LYMPH % 23.2 % (8-40); MCH 29.3 pg (25.7-33.7); MCHC 33.2 g/dl (32.0-35.9); MEAN PLT VOLUME 7.5 fl (7.5-11.1); MONO % 12.4 % (3.8-10.2); PLATELET COUNT 180 K/MM3 (134-434); RBC 2.98 M/mm3 (4.00-5.60); WHITE BLOOD COUNT 6.5 K/mm3 (4.0-10.0)
[2020-06-15] MEDS ORDERED: cefTRIAXone SODIUM 1 GM VIAL ONE (09:18)
[2020-06-15] MEDS ORDERED: PT OWN MED DRAWER 7, Y5N ONE (09:18)
[2020-06-15] MEDS ORDERED: DEXTROSE 5%-WATER - 50 ML IVPB ONE (09:19)
[2020-06-15] MEDS: CEFTRIAXONE 1 GM in DEXTROSE 5%-WATER - 50 ML IVPB SCH (09:23)
[2020-06-15] MEDS: PANTOPRAZOLE 40 MG TABLET PO SCH (09:24)
[2020-06-15] MEDS: SENNOSIDES 8.6MG TABLET (FP) PO SCH (09:24)
[2020-06-15] MEDS: CYANOCOBALAMIN (VITAMIN B-12) 1000 MCG/1 ML VIAL IM SCH (09:25)
[2020-06-15] MEDS: SODIUM CHLORIDE 0.45% 1,000 ML IV SCH (09:25)
[2020-06-15 10:52] VITALS: BP 108/63; PULSE 91
--- NOTE | 2020-06-15 11:01 | CONS ---
INFECTIOUS DISEASE CONSULTATION DATE OF CONSULTATION: DATE OF DICTATION: 06/15/2020 HISTORY: The patient is a 74-year-old male evaluated for urinary tract infection. He was admitted to the hospital on June 07, 2020, with acute urinary retention. He is a [facility] resident. He had been unable to void. He was also noted to be anemic with a hemoglobin of 6.9. In the emergency room his Serna catheter was changed and he was noted to have 600 mL of bloody urine with clots. He was seen in consultation by Urology and diagnosed with hemorrhagic cystitis. He was empirically treated with Cipro. He was taken to the operating room on June 13, 2020, where a cystoscopy, right retrograde pyelogram and left ureteroscopy were performed. There was evacuation of clots. At the present time he continues to have a Serna catheter in place with gross hematuria. He has no complaints of suprapubic or flank pain. He denies any associated fever or chills. On review of previous cultures he has not had a history of multidrug-resistant organisms. PAST MEDICAL HISTORY: Positive for BPH, hypertension, hyperlipidemia, gastroesophageal reflux, osteoarthritis. PAST SURGICAL HISTORY: Status post total hip replacement. ALLERGIES: No known allergies. MEDICATIONS: Include ceftriaxone, albuterol, Flomax, Lipitor, diltiazem, fentanyl. SOCIAL HISTORY: He resides in a senior care facility. He is a nonsmoker, nondrinker. SYSTEMS REVIEW: Neurologic: No loss of consciousness, seizure activity, focal weakness. Cardiac: Negative chest pain or palpitations. Respiratory: Negative cough or sputum production. Gastrointestinal: Negative vomiting or diarrhea. Genitourinary: As per HPI. LABORATORY DATA: White count 5.4, neutrophils 66, lymphocytes 15, monocytes 12, eosinophils 4, hematocrit 23.0, platelets 156. Creatinine 1.0. Urine analysis 10 to 20 white cells. COVID-19 PCR not detected. Urine culture negative. PHYSICAL EXAMINATION: General: He is awake. He is ambulatory. He is in no acute distress. Vital Signs: Temperature 99.0, blood pressure 115/60, pulse 91 regular, respirations 18 per minute. HEENT: Sclerae anicteric. Heart: Sounds S1, S2. Lungs: Clear. Abdomen: Soft. No suprapubic or flank tenderness. Genitourinary: There is a Serna catheter in place with gross hematuria. Extremities: Negative for edema. IMPRESSION: 1. Urinary tract infection, rule out sepsis secondary to urinary tract infection. 2. Hemorrhagic cystitis. 3. Status post cystoscopy, right retrograde pyelogram, left ureteroscopy and evacuation of clots. Obtain repeat urine culture. Continue empiric ceftriaxone. Urology followup. Thank you for the kind referral. COY CRUM M.D. [id number]
--- NOTE | 2020-06-15 11:49 | PN ---
Progress Note, Physician History of Present Illness: Seen and examined at the bedside hematuria improving he offers no acute complaints denies any pain, sob, N/V/D - Current Medication List Current Medications: Active Medications Acetaminophen (Tylenol -) 325 mg PO Q4H PRN PRN Reason: PAIN LEVEL 6-10 Last Admin: 06/14/20 21:02 Dose: 325 mg Documented by: Albuterol/Ipratropium (Duoneb -) 1 amp NEB RBID [facility] Last Admin: 06/15/20 08:45 Dose: Not Given Documented by: Atorvastatin Calcium (Lipitor -) 80 mg PO HS [facility] Last Admin: 06/14/20 20:59 Dose: 80 mg Documented by: Benzocaine/Menthol (Cepacol Lozenge -) 1 each MM PRN PRN PRN Reason: SORE THROAT Cyanocobalamin (Vitamin B12 Injection -) 1,000 mcg IM DAILY [facility] Last Admin: 06/15/20 09:25 Dose: 1,000 mcg Documented by: Diltiazem HCl (Cardizem Cd -) 120 mg PO DAILY [facility] Last Admin: 06/15/20 09:24 Dose: 120 mg Documented by: Fentanyl (Sublimaze Injection -) 50 mcg IVPUSH [id number] PRN PRN Reason: PAIN-PACU ORDER X 4 DOSES ONLY Last Admin: 06/11/20 20:50 Dose: 50 mcg Documented by: Ferrous Sulfate (Feosol -) 325 mg PO BIDWM [facility] Last Admin: 06/15/20 07:53 Dose: 325 mg Documented by: Ceftriaxone Sodium 1 gm/ (Dextrose) 50 mls @ 100 mls/hr IVPB DAILY [facility]; Protocol Last Admin: 06/15/20 09:23 Dose: 100 mls/hr Documented by: Sodium Chloride (1/2 Normal Saline) 1,000 mls @ 75 mls/hr IV ASDIR [facility] Last Admin: 06/15/20 09:25 Dose: 75 mls/hr Documented by: Lactulose (Cephulac (Oral Use)) 20 gm PO DAILY PRN PRN Reason: CONSTIPATION Ondansetron HCl (Zofran Injection) 4 mg IVPUSH Q6H PRN PRN Reason: NAUSEA AND/OR VOMITING Pantoprazole Sodium (Protonix -) 40 mg PO BID [facility] Last Admin: 06/15/20 09:24 Dose: 40 mg Documented by: Senna (Senna -) 2 tab PO BID [facility] Last Admin: 06/15/20 09:24 Dose: 2 tab Documented by: Simethicone (Mylicon -) 80 mg PO Q4H PRN PRN Reason: GAS Last Admin: 06/13/20 20:12 Dose: 80 mg Documented by: Tamsulosin HCl (Flomax -) 0.4 mg PO DAILY@0830 [facility] Last Admin: 06/15/20 07:54 Dose: 0.4 mg Documented by: - Objective Vital Signs: Vital Signs Temperature 98.9 F 06/15/20 05:11 Pulse Rate 91 H 06/15/20 09:00 Respiratory Rate 18 06/15/20 09:00 Blood Pressure 108/63 06/15/20 09:00 O2 Sat by Pulse Oximetry (%) 98 06/15/20 09:00 Constitutional: Yes: No Distress, Calm Eyes: Yes: Conjunctiva Clear HENT: Yes: Atraumatic Neck: Yes: Supple Cardiovascular: Yes: Regular Rate and Rhythm Respiratory: Yes: Regular, CTA Bilaterally Gastrointestinal: Yes: Soft. No: Tenderness Genitourinary: Yes: Root Present (pink urine noted) Extremities: No: Cool, Cyanosis Edema: No Neurological: Yes: Alert Labs: CBC, BMP 06/15/20 07:37 06/13/20 08:00 INR, PTT INR 1.29 (0.83-1.09) H 06/07/20 10:26 Assessment/Plan 74 year old male with history of hypertension, hyperlipidemia, anemia, recent hip replacement, urinary retention with chronic indwelling root who presented from rehab with root obstruction and no urine output and found to have HENOK and acute on chronic anemia. 1. Acute kidney injury due to bladder outlet obstruction 2. Hemorrhagic cystitis 3. Acute on chronic anemia 4. Chronic urinary retention requiring Root 5. Hypertension 6. Hyperlipidemia Renal function stable as of 06/13, no new labs reported today Continue gentle IVF hydration Continue Root as per urology Hematuria improving, Hgb stable. no bladder tumor noted on cystoscopy Antibiotics as per ID Trend renal function and electrolytes daily Thank you Cheng Bell DO
[2020-06-15 15:48] VITALS: BMI 26.3
== END 2020-06-15 13:57 | DRG 699 ==
LOC: JER 09:21 → JERBED 13:37 → J6S 22:20
PROVIDERS: ADMIT Family Medicine; ATTEND Family Medicine
PROC: 30233N1 Transfusion of Nonautologous Red Blood Cells into Peripheral Vein, Percutaneous Approach (ICD-10-PCS; 2020-06-07)
PROC: 0TCB8ZZ Extirpation of Matter from Bladder, Via Natural or Artificial Opening Endoscopic (ICD-10-PCS; 2020-06-11)
PROC: BT1DZZZ Fluoroscopy of Right Kidney, Ureter and Bladder (ICD-10-PCS; principal; 2020-06-11 17:30)
DX: T83.091A Other mechanical complication of indwelling urethral catheter, initial encounter (principal); D62 Acute posthemorrhagic anemia; N17.9 Acute kidney failure, unspecified; N13.30 Unspecified hydronephrosis; N30.01 Acute cystitis with hematuria; E78.5 Hyperlipidemia, unspecified; N13.9 Obstructive and reflux uropathy, unspecified; K21.9 Gastro-esophageal reflux disease without esophagitis; I10 Essential (primary) hypertension; R33.9 Retention of urine, unspecified; Z96.649 Presence of unspecified artificial hip joint; N40.0 Benign prostatic hyperplasia without lower urinary tract symptoms
CPT/HCPCS: 36415; 36430; 36511; 71045-TC-FY; 76775-TC; 76856-TC; 80048; 80053; 81003; 82272; 82607; 82728; 82746; 83540; 83550; 83615; 83735; 84100; 85025; 85027; 85045; 85610; 85730; 86850; 86900; 86901; 86922; 87086; 93005; 93010; 94640; 94760; 99285-25; P9038; P9058; U0003